=== PATIENT | male | born 1950 | race Hispanic/Latino ===

== ENCOUNTER 2022-11-09 11:52 | Emergency (ER) | payer BC, OTHER ==
--- OUTSIDE RECORDS SUMMARY | 2022-11-09 11:55 | XMS REPORT | Continuity of Care Document ---
:1950 Author Organization [facility] t Address [address] [place] [address] Care Team Providers Name Role Phone Unavailable Unavailable Unavailable Payers Payer Name Policy Type Policy Number Effective Date Expiration Date S ource [employer] [id number] 2020 00:00:00 Problems This patient has no known problems. Allergies, Adverse Reactions, Alerts This patient has no known allergies or adverse reactions. Social History Social Habit Start Date Stop Date Quantity Comments Source Sex Assigned At [address] [facility] Medications This patient has no known medications. Immunizations Ordered Immunization Filled Immunization Date Status Commen ts Source Name Name Covid-19 Vaccine 2020-06-[address] [facility] MRNA (PF) 18yr+ 00:00:00 Medical C enter (Moderna)([id number]) Covid-19 Vaccine 2020-05-[address] [facility] MRNA (PF) 18yr+ 00:00:00 Medical C enter (Moderna)([id number]) Procedures This patient has no known procedures. Plan of Care Planned Activity Planned Date Details Comments Source Future Scheduled 2023-01-[address] [facility] 00:00:00 (Season Ended) [code = Medic al Center Influenza Vaccine (Season Ended)] Future Scheduled 2022-05-[address] [facility] 00:00:00 (12+) [code = Medical Center DEPRESSION SCREENING (12+)] Future Scheduled 2022-05-20 FALLS RISK SCREENING [facility] 00:00:00 [code = FALLS RISK Medical C enter SCREENING] Future Scheduled 2020-08-16 COVID-19 VACCINE (3 - [facility] 00[facility]00 Booster for Moderna [facility] series) [code = COVID-19 VACCINE (3 - Booster for Moderna series)] Future Scheduled 2017-02-02 PNEUMOCOCCAL 65+ YRS ([address] [facility] 00:00:00 - PCV) [code = Medical Cente r PNEUMOCOCCAL 65+ YRS (1 - PCV)] Future Scheduled 2002-02-02 SHINGLES VACCINES ([address] [facility] 00:00:00 2) [code = SHINGLES Medical Center VACCINES (1 of 2)] Future Scheduled 1971-02-02 DTAP/TDAP/TD VACCINES [facility] 00:00:00 (1 - Tdap) [code = Medical C enter DTAP/TDAP/TD VACCINES (1 - Tdap)] Future Scheduled 1970-02-02 HEPATITIS C SCREENING [facility] 00:00:00 [code = HEPATITIS C Medical Center SCREENING] Future Scheduled [address] [facility] 00:00:00 Counseling and Medical Cente r Screening (12+) [code = Tobacco Cessation Counseling and Screening (12+)] Future Scheduled 1952 CT Colonography (combo) [facility] 00:00:00 [code = CT Colonography [facility] (combo)] Future Scheduled 1950 Screening for malignant [facility] 00:00:00 neoplasm of colon Medical Ce nter (procedure) [code = 153144939] Future Scheduled 1950 Screening for malignant [facility] 00:00:00 neoplasm of colon Medical Ce nter (procedure) [code = 450166813] Future Scheduled 1950 Screening for malignant [facility] Test 00:00:00 neoplasm of colon Medical Ce nter (procedure) [code = 712259152] Future Scheduled 1950 Screening for malignant [facility] Test 00:00:00 neoplasm of colon Medical Ce nter (procedure) [code = 863080010] Future Scheduled 1950 Sigmoidoscopy [code = [facility] 00:[facility]:00 Sigmoidoscopy] Medical Cente r Encounters Start End Encounter Admission Attending Care Care Encounter Source Date/Time Date/Time Type Type Clinicians Facility Department ID 2020-06-21 2020-06-21 Outpatient [facility] [id number] [facility] 00:00:00 00:00:00 2020-05-26 2020-05-26 Outpatient [facility] [id number] [facility] 00:00:00 00:00:00 Results This patient has no known results.
--- NOTE | 2022-11-09 12:26 | RAD REPORT ---
EXAM DESCRIPTION: CT - [id number] - 11/09/2022 12:16 pm CLINICAL HISTORY: TRAUMA COMPARISON: No comparisons TECHNIQUE: Axial thin cut noncontrast CT images of the head were obtained. Axial thin cut noncontrast CT images of the cervical spine were obtained. Multiplanar reformatted images were generated and reviewed. All CT scans are performed using dose optimization technique as appropriate and may include automated exposure control or mA/KV adjustment according to patient size. FINDINGS: CT HEAD WITHOUT CONTRAST: No acute hemorrhage, hydrocephalus or extra-axial collection is identified.Focus of near CSF density in the right basal ganglia is nonspecific, but suggestive of a remote small infarct. Other smaller hy poattenuating foci in the right thalamus and posterior limb of right internal capsule are noted, may relate to small infarcts of indeterminate age.No areas of brain edema or midline shift. The paranasal sinuses and mastoids are clear.The calvarium is intact. CT CERVICAL SPINE WITHOUT CONTRAST: No fracture or subluxation.No prevertebral soft tissues swelling is identified. Mild degenerative ch anges of the cervical spine. IMPRESSION: No acute traumatic intracranial or cervical spine findings. Hypoattenuating foci in the right basal ganglia region, some of which may relate to small infarcts of indeterminate age. Please correlate clinically. If there is concern for acute ischemia, additional e valuation by stroke protocol brain MRI may be helpful. Mild cervical spine degenerative changes.
--- NOTE | 2022-11-09 12:38 | RAD REPORT ---
EXAM DESCRIPTION: RAD - Hand Left 3 View - 11/09/2022 12:27 pm CLINICAL HISTORY: PAIN COMPARISON: No comparisons FINDINGS: Significant soft tissue swelling is seen. There is no fracture or aggressive marrow patter n. Fourth finger soft tissue is proximally demonstrates a tiny radiopaque foreign body. Moderate radi ocarpal arthritic changes.
[2022-11-09] MEDS ORDERED: TDAP (DIPHTH,PERTUSS(ACELL),TET VAC) 0.5 ML VIAL IMVAC ONE (12:54)
[2022-11-09] MEDS ORDERED: LIDOCAINE 1% MPF 5 ML VIAL ONE (13:53)
--- NOTE | 2022-11-09 14:50 | EDPHYS ---
Physician Documentation [facility] Name: Bradford Dow Age: 72 yrs Sex: Male : 1950 Arrival Date: 11/09/2022 Time: 11:52 Bed 10 Private MD: ED Physician Tex Krishnan HPI: 11/09 18:52 This 72 yrs old Male presents to ER via Ambulatory with complaints of Fall rt Injury, Head Injury-Adult, Finger Injury. 18:52 Patient presents to the ED with mechanical trip and fall with head injury and injury to rt his left hand. He did sustain a laceration to the left eyebrow and reports that his left index finger is dislocated. Denies other injury or other acute complaints. Symptoms are aching nature, nonradiating, moderate severity, no other aggravating alleviating factors.. Historical: - Allergies: 12:06 No Known Allergies; cm10 - Home Meds: 12:06 None [Active]; cm10 - PMHx: 12:06 None; cm10 - PSHx: 12:06 None; cm10 - Immunization history:: Adult Immunizations unknown, Last tetanus immunization: > 10 years ago. - Social history:: Smoking status: Patient reports the use of cigarette tobacco products, smokes one pack cigarettes per day. - Family history:: not pertinent. ROS: 18:52 Constitutional: Negative for fever, chills, and weight loss, Cardiovascular: Negative rt for chest pain, palpitations, and edema, Respiratory: Negative for shortness of breath, cough, wheezing, and pleuritic chest pain, Abdomen/GI: Negative for abdominal pain, nausea, vomiting, diarrhea, and constipation. 18:52 MS/extremity: Positive for injury or acute deformity, pain. 18:52 Skin: Positive for laceration(s), Negative for abrasions. Exam: 18:52 Constitutional: This is a well developed, well nourished patient who is awake, alert, rt and in no acute distress. Chest/axilla: Normal chest wall appearance and motion. Nontender with no deformity. No lesions are appreciated. Cardiovascular: Regular rate and rhythm with a normal S1 and S2. No gallops, murmurs, or rubs. Normal PMI, no JVD. No pulse deficits. Respiratory: Lungs have equal breath sounds bilaterally, clear to auscultation and percussion. No rales, rhonchi or wheezes noted. No increased work of breathing, no retractions or nasal flaring. Abdomen/GI: Soft, non-tender, with normal bowel sounds. No distension or tympany. No guarding or rebound. No evidence of tenderness throughout. Neuro: Awake and alert, GCS 15, oriented to person, place, time, and situation. Cranial nerves II-XII grossly intact. Motor strength 5/5 in all extremities. Sensory grossly intact. Cerebellar exam normal. Normal gait. Psych: Awake, alert, with orientation to person, place and time. Behavior, mood, and affect are within normal limits. 18:52 Head/face: 2 cm laceration to the left eyebrow, no active bleeding. 18:52 Musculoskeletal/extremity: Dislocated left index finger at the PIP. Vital Signs: 12:03 BP 212 / 121; Pulse 71; Resp 18; Temp 97.3; Pulse Ox 100% on R/A; Weight 65.77 kg; cm10 Height 5 ft. 0 in. ; Pain 4/10; 13:00 BP 225 / 104; ll1 13:48 BP 190 / 96; Pulse 53; ll1 15:00 BP 189 / 95; Pulse 55; Resp 16; Pulse Ox 100% on R/A; Pain 0/10; ll1 12:03 Body Mass Index 27.73 (65.77 kg, 154 cm) cm10 12:03 Pain Scale: Adult cm10 15:00 Pain Scale: Adult ll1 Devon Coma Score: 13:05 Eye Response: spontaneous(4). Motor Response: obeys commands(6). Verbal Response: ll1 oriented(5). Total: 15. Trauma Score (Adult): 13:05 Eye Response: spontaneous(1); Verbal Response: oriented(1); Motor Response: obeys ll1 commands(2); Systolic BP: > 89 mm Hg(4); Respiratory Rate: 10 to 29 per min(4); Hartwick Score: 15; Trauma Score: 12 Procedures: 18:52 Reduction: of the PIP of left index finger, using traction, Patient tolerated well. rt Post reduction film - reveals normal alignment. Joint Treatment: Laceration: 18:52 Wound Repair of 2cm ( 0.8in ) subcutaneous laceration to face. Irregularly shaped.. rt Distal neuro/vascular/tendon intact. Anesthesia: Wound infiltrated with 2 mls of 1% lidocaine. Wound prep: Copious irrigation. Skin closed with 5 5-0 Prolene using interrupted sutures and sterile technique. Dressed with 4x4's. Patient tolerated well. MDM: 12:07 Patient medically screened. rt 18:52 Differential diagnosis: Fracture, intracranial hemorrhage, laceration, dislocated rt finger. Data reviewed: vital signs, nurses notes, radiologic studies. Independent interpretation of the following test(s) in the Emergency Department X-Ray: My interpretation is No fracture seen on interpretation of x-ray images. Test considered but Not performed: EKG: Denies syncopal symptoms, EKG and and labs not indicate. Counseling: I had a detailed discussion with the patient and/or guardian regarding: the historical points, exam findings, and any diagnostic results supporting the discharge/admit diagnosis, radiology results, the need for outpatient follow up. 11/09 12:07 Order name: Hand Left 3 View XRAY; Complete Time: 12:59 rt 11/09 12:07 Order name: CT Head C Spine; Complete Time: 12:59 rt 11/09 12:07 Order name: Wound Care; Complete Time: 12:52 rt 11/09 13:42 Order name: Dressing - Wound; Complete Time: 15:04 rt 11/09 13:42 Order name: Gloves, Sterile; Complete Time: 13:49 rt 11/09 13:42 Order name: Prolene, Sutures; Complete Time: 13:49 rt 11/09 13:42 Order name: Setup Suture Tray; Complete Time: 13:49 rt Administered Medications: 12:51 Drug: Tetanus-Diphtheria Toxoid IM Adult 0.5 ml {Comedian: [employer]. Exp: ll1 10/28/2023. Lot #: [id number]. } Route: IM; Site: right deltoid; 13:36 Follow up: Response: No adverse reaction ll1 14:03 Drug: Lidocaine Infiltration (1 %) 5 ml {Note: by Dr. Krishnan.} Volume: 5 ml; Route: ll1 Infiltration; 15:04 Follow up: Response: No adverse reaction ll1 Disposition Summary: 11/09/22 14:49 Discharge Ordered Location: Home rt Condition: Stable rt Problem: new rt Symptoms: have improved rt Diagnosis - Facial laceration rt - Dislocation to proximal phalanx of left index finger rt Followup: rt - With: Private Physician - When: 7 - 10 days - Reason: Staple/Suture removal Discharge Instructions: - Discharge Summary Sheet rt - Finger or Thumb Dislocation rt - Facial Laceration rt - Sutures, Lapine, or Adhesive Wound Closure rt Forms: - Medication Reconciliation Form rt - Thank You Letter rt - Antibiotic Education rt - Prescription Opioid Use rt Signatures: Dispatcher [employer] Ofelia Biggs RN RN ll1 Tex Krishnan MD MD rt Jolene Carlson RN RN cm10
--- NOTE | 2022-11-09 14:50 | ER ---
Nurse's Notes [facility] Name: Bradford Dow Age: 72 yrs Sex: Male : 1950 Arrival Date: 11/09/2022 Time: 11:52 Bed 10 Private MD: Diagnosis: Facial laceration;Dislocation to proximal phalanx of left index finger Presentation: 11/09 12:03 Chief complaint: Patient states: That he had a mechanical fall. Patient states that he cm10 tripped and fell and hit his head. Patient has laceration to left eyebrow, bleeding controlled. Pt has noted deformity to his 2nd digit on his left hand. Coronavirus screen: Vaccine status: Patient reports receiving the 2nd dose of the covid vaccine. Ebola Screen: Patient denies travel to an Ebola-affected area in the 21 days before illness onset. No symptoms or risks identified at this time. Initial Sepsis Screen: Does the patient meet any 2 criteria? No. Patient's initial sepsis screen is negative. Does the patient have a suspected source of infection? No. Patient's initial sepsis screen is negative. Risk Assessment: Do you want to hurt yourself or someone else? Patient reports no desire to harm self or others. Onset of symptoms was November 09, 2022. 12:03 Method Of Arrival: Ambulatory cm10 12:03 Acuity: MONI 3 cm10 12:56 Care prior to arrival: None. Mechanism of Injury: Fall. Trauma event details: Injury ll1 occurred in the [facility]. Trauma Activation: Not Applicable Physician: ED Physician; Name: ; Notified At: ; Arrived At: Physician: General Surgeon; Name: ; Notified At: ; Arrived At: Physician: Radiology; Name: ; Notified At: ; Arrived At: Physician: Respiratory; Name: ; Notified At: ; Arrived At: Physician: Lab; Name: ; Notified At: ; Arrived At: Historical: - Allergies: 12:06 No Known Allergies; cm10 - Home Meds: 12:06 None [Active]; cm10 - PMHx: 12:06 None; cm10 - PSHx: 12:06 None; cm10 - Immunization history:: Adult Immunizations unknown, Last tetanus immunization: > 10 years ago. - Social history:: Smoking status: Patient reports the use of cigarette tobacco products, smokes one pack cigarettes per day. - Family history:: not pertinent. Screenin:56 [facility] ED Fall Risk Assessment (Adult) History of falling in the last 3 months, ll1 including since admission Yes- single mechanical fall (1 pt) Score/Fall Risk Level 0 - 2 = Low Risk Oriented to surroundings, Maintained a safe environment, Educated pt \T\ family on fall prevention, incl call for assistance when getting out of bed, Hourly rounding (assess needs \T\ fall precautionary measures) done. Abuse screen: Denies threats or abuse. Nutritional screening: No deficits noted. Tuberculosis screening: No symptoms or risk factors identified. Primary Survey: 13:05 NO uncontrolled hemorrhage observed. A: The client is awake and alert. The airway is ll1 patent. Breathing/Chest: Spontaneous respiratory effort, equal unlabored respirations, breath sounds clear bilaterally, regular pattern, symmetrical chest rise and fall. Circulation: No external hemorrhage present. Regular and strong central pulse, skin warm/dry/normal color. Disability Client is alert. Exposure/Environment: There is no evidence of uncontrolled external bleeding. 15:03 Reassessment Breathing: Spontaneous respiratory effort, equal unlabored respirations, ll1 breath sounds clear bilaterally, regular pattern with symmetrical chest rise and fall. Assessment: 12:43 General: Appears uncomfortable, Behavior is calm, cooperative, appropriate for age. ll1 Pain: Complains of pain in face Quality of pain is described as aching. Derm: Reports laceration L eyebrow. Musculoskeletal: Circulation, motion, and sensation intact. Capillary refill < 3 seconds, Reports pain in left hand. 13:00 Reassessment: No changes from previously documented assessment. Patient and/or family ll1 updated on plan of care and expected duration. Pain level reassessed. 13:49 Reassessment: No changes from previously documented assessment. Patient and/or family ll1 updated on plan of care and expected duration. Pain level reassessed. Patient is alert, oriented x 3, equal unlabored respirations, skin warm/dry/pink. 15:02 Reassessment: No changes from previously documented assessment. Patient and/or family ll1 updated on plan of care and expected duration. Pain level reassessed. Dr. Krishnan informed of BP. Still cleared for discharge, follow-up with PCP regarding elevated BP. Vital Signs: 12:03 BP 212 / 121; Pulse 71; Resp 18; Temp 97.3; Pulse Ox 100% on R/A; Weight 65.77 kg; cm10 Height 5 ft. 0 in. ; Pain 4/10; 13:00 BP 225 / 104; ll1 13:48 BP 190 / 96; Pulse 53; ll1 15:00 BP 189 / 95; Pulse 55; Resp 16; Pulse Ox 100% on R/A; Pain 0/10; ll1 12:03 Body Mass Index 27.73 (65.77 kg, 154 cm) cm10 12:03 Pain Scale: Adult cm10 15:00 Pain Scale: Adult ll1 [place] Coma Score: 13:05 Eye Response: spontaneous(4). Motor Response: obeys commands(6). Verbal Response: ll1 oriented(5). Total: 15. Trauma Score (Adult): 13:05 Eye Response: spontaneous(1); Verbal Response: oriented(1); Motor Response: obeys ll1 commands(2); Systolic BP: > 89 mm Hg(4); Respiratory Rate: 10 to 29 per min(4); Devon Score: 15; Trauma Score: 12 ED Course: 11:53 Patient arrived in ED. am2 11:54 Tex Krishnan MD is Attending Physician. rt 12:06 Triage completed. cm10 12:07 Arm band placed on Patient placed. cm10 12:17 CT Head C Spine In Process Unspecified. EDMS 12:28 Hand Left 3 View XRAY In Process Unspecified. EDMS 12:40 Ofelia Ferrell RN is Primary Nurse. ll1 12:41 Patient placed in an exam room, on a stretcher. ll1 13:05 Patient has correct armband on for positive identification. Bed in low position. Call ll1 light in reach. Client placed on continuous cardiac and pulse oximetry monitoring. NIBP monitoring applied. 13:06 Patient maintains SpO2 saturation greater than 95% on room air. ll1 13:06 Thermoregulation: warm blanket given to patient. ll1 15:03 No provider procedures requiring assistance completed. Patient did not have IV access ll1 during this emergency room visit. Administered Medications: 12:51 Drug: Tetanus-Diphtheria Toxoid IM Adult 0.5 ml {Petroleum Production Engineer: [employer]. Exp: ll1 10/28/2023. Lot #: [id number]. } Route: IM; Site: right deltoid; 13:36 Follow up: Response: No adverse reaction ll1 14:03 Drug: Lidocaine Infiltration (1 %) 5 ml {Note: by Dr. Krishnan.} Volume: 5 ml; Route: ll1 Infiltration; 15:04 Follow up: Response: No adverse reaction ll1 Medication: 13:04 Vaccine Information Statement (VIS) provided today. Questions and/or concerns ll1 addressed. VIS edition date: December 23, 2020. Intake: 15:04 PO: 0ml; Total: 0ml. ll1 Output: 15:04 Urine: 0ml; Total: 0ml. ll1 Outcome: 14:49 Discharge ordered by MD. rt 15:03 Discharged to home ambulatory. ll1 15:03 Condition: stable 15:03 Discharge instructions given to patient, family, Instructed on discharge instructions, follow up and referral plans. wound care, Demonstrated understanding of instructions, follow-up care, wound care. 15:04 Patient's length of stay was not longer than 2 hours. ll1 15:04 Patient left the ED. 1 Signatures: Dispatcher [employer] EDAZ Mary Norman Lynsay, RN RN ll1 Tex Krishnan MD MD rt Jolene Carlson RN RN cm10
[2022-11-09 15:10] VITALS: TEMP 97.3; O2SAT 100
[2022-11-09 15:11] VITALS: BP 190/96
== END 2022-11-09 15:04 | disposition home or self-care (01) ==
LOC: ER 11:52
PROC: 0HQ1XZZ Repair Face Skin, External Approach (ICD-10-PCS; principal; 2022-11-09)
PROC: 0RSXXZZ Reposition Left Finger Phalangeal Joint, External Approach (ICD-10-PCS; 2022-11-09)
DX: S01.81XA Laceration without foreign body of other part of head, initial encounter (principal); S63.251A Unspecified dislocation of left index finger, initial encounter; Z23 Encounter for immunization; F17.210 Nicotine dependence, cigarettes, uncomplicated
CPT/HCPCS: 70450; 72125; 73130; 90471; 99284; 12011; 26770; J2001

== ENCOUNTER 2022-11-15 16:08 | Emergency (ER) | payer OTHER ==
--- OUTSIDE RECORDS SUMMARY | 2022-11-15 16:12 | XMS REPORT | Continuity of Care Document ---
:[address] [facility] t Address [address] [place] [address] Care Team Providers Name Role Phone LINDSEY RYDER Attending Clinician Unavailable BEULAH AKBAR Attending Clinician Unavailable Payers Payer Name Policy Type Policy Number Effective Date Expiration Date S chela [employer] MP CVS 9 [id number] 2022 SILVER: O SENIOR SOFTWARE QA ANALYST 87 00:00:00 [employer] [id number] 2020 00:00:00 Problems This patient has no known problems. Allergies, Adverse Reactions, Alerts This patient has no known allergies or adverse reactions. Social History Social Habit Start Date Stop Date Quantity Comments Source Gender identity Rakan perez - External Sexual orientation Rakan Herrera - External History of tobacco Cigarette Smoker Rakan Herrera use - External Cigarettes smoked 2022-11-15 2022-11-15 Rakan Herrera current (pack per 00:00:00 00:00:00 - Exter nal day) - Reported Cigarette 2022-11-15 2022-11-15 Rakan Herrera pack-years 00:00:00 00:00:00 - External Tobacco use and 2022-11-15 2022-11-15 Smokeless tobacco Anup Herrera exposure 00:00:00 00:00:00 non-user - External Alcohol intake 2022-11-15 2022-11-15 Lifetime Rakan abdalla 00:00:00 00:00:00 non-drinker - External (finding) History of Social 2022-11-15 2022-11-15 Rakan Herrera function 00:00:00 00:00:00 - External Sex Ass[birth year] SHE Chauhan kes [facility] Smoking Status Start Date Stop Date Source Smokes tobacco daily 2022-11-15 00:00:00 Rakan Herrera - External Medications This patient has no known medications. Immunizations Ordered Immunization Filled Immunization Date Status Commen ts Source Name Name Covid-19 Vaccine 2020-06-[address] [facility] MRNA (PF) 18yr+ 00:00:00 [facility] enter (Moderna)([id number]) Covid-19 Vaccine 2020-06-[address] [facility] MRNA (PF) 18yr+ 00:00:00 Medical C enter (Moderna)([id number]) Covid-19 Vaccine 2020-05-[address] [facility] MRNA (PF) 18yr+ 00:00:00 Medical C enter (Moderna)([id number]) Covid-19 Vaccine 2020-05-[address] [facility] MRNA (PF) 18yr+ 00:00:00 Medical C enter (Moderna)([id number]) Vital Signs Vital Name Observation Time Observation Value Comments Source Systolic blood 2022-11-15 20:02:00 182 mm[Hg] Rakan Seybold - pressure External Diastolic blood 2022-11-15 20:02:00 100 mm[Hg] Steve szymanski Seybold - pressure External Heart rate 2022-11-15 20:02:00 56 /min Rakan Greg sylvain - External Body temperature 2022-11-15 20:02:00 36.61 Vicenta En[place] ey Seybold - External Respiratory rate 2022-11-15 20:02:00 14 /min [place] ey Seybold - External Body height 2022-11-15 20:02:00 165.1 cm Rakan Greg xiaobomerari - External Body weight 2022-11-15 20:02:00 67.586 kg Rakan Greg xiaobomerari - External BMI 2022-11-15 20:02:00 24.79 kg/m2 Rakan Greg xiaobomerari - External Oxygen saturation in 2022-11-15 20:02:00 99 /min Rakan Herrera - Arterial blood by External Pulse oximetry Procedures This patient has no known procedures. Plan of Care Planned Activity Planned Date Details Comments Source Future Scheduled 2023-01-[address] [facility] 00:00:00 (Season Ended) [code = Medic al Center Influenza Vaccine (Season Ended)] Future Scheduled 2023-01-[address] [facility] 00:00:00 (Season Ended) [code = [facility] al Center Influenza Vaccine (Season Ended)] Future Scheduled 2022-05-[address] [facility] 00:00:00 (12+) [code = Medical Center DEPRESSION SCREENING (12+)] Future Scheduled 2022-05-20 FALLS RISK SCREENING [facility] 00:00:00 [code = FALLS RISK Medical C enter SCREENING] Future Scheduled 2022-05-[address] [...] - Booster for Moderna series)] Future Scheduled 2020-08-16 COVID-19 VACCINE (3 - [facility] Booster for Moderna [facility] series) [code = COVID-19 VACCINE (3 - Booster for Moderna series)] Future Scheduled 2017-02-02 PNEUMOCOCCAL 65+ YRS ([address] [facility] 00:00:00 - PCV) [code = Medical Cente r PNEUMOCOCCAL 65+ YRS (1 - PCV)] Future Scheduled 2017-02-02 PNEUMOCOCCAL 65+ YRS ([address] [facility] 00:00:00 - PCV) [code = Medical Cente r PNEUMOCOCCAL 65+ YRS (1 - PCV)] Future Scheduled 2002-02-02 SHINGLES VACCINES ([address] [facility] 00:00:00 2) [code = SHINGLES [facility] VACCINES (1 of 2)] Future Scheduled 2002-02-02 SHINGLES VACCINES ([address] [facility] 00:00:00 2) [code = SHINGLES [facility] VACCINES (1 of 2)] Future Scheduled 1971-02-02 DTAP/TDAP/TD VACCINES [facility] 00:00:00 (1 - Tdap) [code = Medical C enter DTAP/TDAP/TD VACCINES (1 - Tdap)] Future Scheduled 1971-02-02 DTAP/TDAP/TD VACCINES [facility] 00:00:00 (1 - Tdap) [code = Medical C enter DTAP/TDAP/TD VACCINES (1 - Tdap)] Future Scheduled 1970-02-02 HEPATITIS C SCREENING [facility] 00:00:00 [code = HEPATITIS C Medical Center SCREENING] Future Scheduled 1970-02-02 HEPATITIS C SCREENING [facility] 00:00:00 [code = HEPATITIS C Medical Center SCREENING] Future Scheduled [address] [facility] 00:00:00 Counseling and Medical Cente r Screening (12+) [code = Tobacco Cessation Counseling and Screening (12+)] Future Scheduled [address] [facility] 00:00:00 Counseling and Medical Cente r Screening (12+) [code = Tobacco Cessation Counseling and Screening (12+)] Future Scheduled 1952 CT Colonography (combo) [facility] 00:00:00 [code = CT Colonography [facility] (combo)] Future Scheduled 1952 Screening for malignant [facility] 00:00:00 neoplasm of colon Medical Ce nter (procedure) [code = 189485105] Future Scheduled 1952 Screening for malignant [facility] 00:00:00 neoplasm of colon Medical Ce nter (procedure) [code = 713164762] Future Scheduled 1952 Screening for malignant [facility] 00:00:00 neoplasm of colon Medical Ce nter (procedure) [code = 233717756] Future Scheduled 1952 Screening for malignant [facility] 00:00:00 neoplasm of colon Medical Ce nter (procedure) [code = 752429118] Future Scheduled 1950 Sigmoidoscopy [code = [facility] 00:[facility] Sigmoidoscopy] Medical Cente r Future Scheduled 1952 CT Colonography (combo) [facility] 00:00:00 [code = CT Colonography [facility] (combo)] Future Scheduled 1952 Screening for malignant [facility] 00:00:00 neoplasm of colon Medical Ce nter (procedure) [code = 639839753] Future Scheduled 1952 Screening for malignant [facility] 00:00:00 neoplasm of colon Medical Ce nter (procedure) [code = 788314644] Future Scheduled 1950 Screening for malignant [facility] 00:00:00 neoplasm of colon Medical Ce nter (procedure) [code = 191469819] Future Scheduled 1952 Screening for malignant [facility] 00:00:00 neoplasm of colon Medical Ce nter (procedure) [code = 789525073] Future Scheduled 1950 Sigmoidoscopy [code = [facility] 00:[facility] Sigmoidoscopy] Medical Cente r Encounters Start End Encounter Admission Attending Care Care Encounter Source Date/Time Date/Time Type Type Clinicians Facility Department ID 2022-11-26 2022-11-26 Outpatient RAKAN RYDER [id number] Rakan 11:30:00 11:30:00 LINDSEY stanton 2022-11-15 2022-11-15 Outpatient RAKAN AKBAR [id number] Rakan 14:45:00 14:45:00 BEULAH stanton 2020-06-21 2020-06-21 Outpatient [facility] [id number] [facility] 00:00:00 00:00:00 2020-05-26 2020-05-26 Outpatient [facility] [id number] [facility] 00:00:00 00:00:00 Results This patient has no known results.
[2022-11-15 16:59] LABS: Absolute Lymphocytes (CBC) 2.9 K/uL (0.7-4.9); Hematocrit 50.8 % (39.6-49.0); Lymphocytes % 33.6 % (15.3-44.8); MCV 95.9 fL (80-100); MPV 9.2 fL (7.6-11.3)
[2022-11-15 17:19] LABS: Albumin 4.3 g/dL (3.4-5.0); Bilirubin Direct 0.1 mg/dL (0-0.2); Bilirubin Indirect, Calculated 0.5 mg/dL (0.2-0.8); Bilirubin Total 0.6 mg/dL (0.2-1.0); Protein, Total 8.2 g/dL (6.4-8.2); Troponin High Sensitivity 25.1 pg/mL (<58.9)
[2022-11-15 17:20] LABS: Potassium 4.3 mEq/L (3.5-5.1)
--- NOTE | 2022-11-15 17:29 | ER ---
Nurse's Notes [facility] Name: Bradford Dow Age: 72 yrs Sex: Male : 1950 Arrival Date: 11/15/2022 Time: 16:08 Bed 9 Private MD: Diagnosis: Essential (primary) hypertension Presentation: 11/15 16:25 Chief complaint: Patient states: Went to PCP today for a follow up, blood pressure was nj1 high, PCP needs blood work before being able to prescribe him any medication. Pt has no complaints. Feels fine. Coronavirus screen: Vaccine status: Patient reports receiving the 2nd dose of the covid vaccine. Ebola Screen: Patient denies travel to an Ebola-affected area in the 21 days before illness onset. Initial Sepsis Screen: Does the patient meet any 2 criteria? No. Patient's initial sepsis screen is negative. Does the patient have a suspected source of infection? No. Patient's initial sepsis screen is negative. Risk Assessment: Do you want to hurt yourself or someone else? Patient reports no desire to harm self or others. 16:25 Method Of Arrival: Ambulatory [facility] 16:25 Acuity: MONI 3 nj1 Historical: - Allergies: 16:30 No Known Allergies; nj1 - PSHx: 16:30 Repair of inguinal hernia; nj1 - Immunization history:: Client reports receiving the 2nd dose of the Covid vaccine. - Social history:: Smoking status: Patient reports the use of cigarette tobacco products, smokes one pack cigarettes per day. - Family history:: not pertinent. - Hospitalizations: : No recent hospitalization is reported. Screenin:50 [facility] ED Fall Risk Assessment (Adult) History of falling in the last 3 months, kc6 including since admission No falls in past 3 months (0 pts) Confusion or Disorientation No (0 pts) Intoxicated or Sedated No (0 pts) Impaired Gait No (0 pts) Mobility Assist Device Used No (0 pt) Altered Elimination No (0 pt) Score/Fall Risk Level 0 - 2 = Low Risk Oriented to surroundings, Maintained a safe environment, Educated pt \T\ family on fall prevention, incl call for assistance when getting out of bed, Assessed \T\ reinforced patient's understanding of fall precautions, Hourly rounding (assess needs \T\ fall precautionary measures) done. Abuse screen: Denies threats or abuse. Denies injuries from another. Nutritional screening: No deficits noted. Tuberculosis screening: No symptoms or risk factors identified. Assessment: 16:49 General: Appears in no apparent distress. comfortable, Behavior is calm, cooperative, kc6 appropriate for age. Pain: Denies pain. Neuro: Level of Consciousness is awake, alert, obeys commands, Oriented to person, place, time, situation, Appropriate for age. Cardiovascular: Denies chest pain, Heart tones S1 S2 present Capillary refill < 3 seconds Rhythm is sinus rhythm. Respiratory: Airway is patent Trachea midline Respiratory effort is even, unlabored, Respiratory pattern is regular, symmetrical. GI: No signs and/or symptoms were reported involving the gastrointestinal system. : No signs and/or symptoms were reported regarding the genitourinary system. EENT: No signs and/or symptoms were reported regarding the EENT system. Derm: No signs and/or symptoms reported regarding the dermatologic system. Skin is intact, Skin is pink, warm \T\ dry. Musculoskeletal: No signs and/or symptoms reported regarding the musculoskeletal system. Circulation, motion, and sensation intact. Capillary refill < 3 seconds, Range of motion: intact in all extremities. 17:41 Reassessment: Patient appears in no apparent distress at this time. No changes from kc6 previously documented assessment. Patient and/or family updated on plan of care and expected duration. Pain level reassessed. Patient is alert, oriented x 3, equal unlabored respirations, skin warm/dry/pink. Vital Signs: 16:25 BP 198 / 114; Pulse 70; Resp 18; Temp 98.1(O); Pulse Ox 100% ; Weight 67.59 kg; Height nj1 5 ft. 5 in. ; Pain 0/10; 17:27 BP 173 / 76; rn 16:25 Body Mass Index 24.79 (67.59 kg, 165.1 cm) nj1 16:25 Pain Scale: Adult ky1 ED Course: 16:11 Patient arrived in ED. im 16:12 Ion Burnette MD is Attending Physician. rn 16:30 Triage completed. nj1 16:31 Arm band placed on right wrist. nj1 16:36 Jamilah Chakraborty RN is Primary Nurse. [facility] 16:50 Patient has correct armband on for positive identification. Bed in low position. Call kc6 light in reach. Side rails up X 1. Adult w/ patient. 16:51 Inserted saline lock: 20 gauge in right antecubital area, using aseptic technique. aw1 16:51 Initial lab(s) drawn, by me, sent to lab. aw1 17:41 No provider procedures requiring assistance completed. IV discontinued, intact, kc6 bleeding controlled, No redness/swelling at site. Pressure dressing applied. Administered Medications: 17:41 Drug: Hydrochlorothiazide PO 25 mg Route: PO; kc6 Medication: 17:42 VIS not applicable for this client. kc6 Outcome: 17:29 Discharge ordered by . rn 17:41 Discharged to home ambulatory, with significant other. kc6 17:41 Condition: stable 17:41 Discharge instructions given to patient, Instructed on discharge instructions, follow up and referral plans. medication usage, Demonstrated understanding of instructions, follow-up care, medications, Prescriptions given X 1. 17:42 Patient left the ED. kc6 Signatures: Ion Burnette MD MD rn Campbell, Kaitlyn, RN RN kc6 Gail Velasco RN RN nj1 Hetal De Luna Alyssa aw1
--- NOTE | 2022-11-15 17:29 | EDPHYS ---
Physician Documentation [facility] Name: Bradford Dow Age: 72 yrs Sex: Male : 1950 Arrival Date: 11/15/2022 Time: 16:08 Bed 9 Private MD: ED Physician Ion Burnette HPI: 11/15 16:51 This 72 yrs old Male presents to ER via Ambulatory with complaints of Blood rn work-Dr farris. 16:51 The patient has elevated blood pressure and discovered this at a physician's office. rn Onset: The symptoms/episode began/occurred at an unknown time. Modifying factors:. Associated signs and symptoms: Pertinent negatives: chest pain, headache, nausea, visual changes, vomiting, weakness. Severity of symptoms: At its worst the blood pressure was moderate, in the emergency department the blood pressure is unchanged. The patient has experienced similar episodes in the past. The patient has been recently seen by a physician:. Sent here by Dr. Sierra for HTN and need for bloodwork prior to him starting anti-hypertensives. Pt seen here recently and noted to be hypertensive then as well. Pt not aware of HTN, and denies any symptoms. He states feels fine. No headache/vision changes/chest pain/sob/abd pain/focal neuro complaint. . Historical: - Allergies: 16:30 No Known Allergies; nj1 - PSHx: 16:30 Repair of inguinal hernia; nj1 - Immunization history:: Client reports receiving the 2nd dose of the Covid vaccine. - Social history:: Smoking status: Patient reports the use of cigarette tobacco products, smokes one pack cigarettes per day. - Family history:: not pertinent. - Hospitalizations: : No recent hospitalization is reported. ROS: 16:51 Constitutional: Negative for fever, chills, and weight loss, Eyes: Negative for injury, rn pain, redness, and discharge, Neck: Negative for injury, pain, and swelling, Cardiovascular: Negative for chest pain, palpitations, and edema, Respiratory: Negative for shortness of breath, cough, wheezing, and pleuritic chest pain, Abdomen/GI: Negative for abdominal pain, nausea, vomiting, diarrhea, and constipation, Back: Negative for injury and pain, MS/Extremity: Negative for injury and deformity, Skin: Negative for injury, rash, and discoloration, Neuro: Negative for headache, weakness, numbness, tingling, and seizure. Exam: 16:51 Constitutional: This is a well developed, well nourished patient who is awake, alert, rn and in no acute distress. Head/Face: Normocephalic, atraumatic. Neck: Trachea midline, no masses palpate. Supple, full range of motion without nuchal rigidity, or vertebral point tenderness. No Meningismus. Cardiovascular: Regular rate and rhythm. No pulse deficits. Respiratory: No increased work of breathing, no retractions or nasal flaring. Abdomen/GI: Soft, non-tender Skin: Warm, dry with normal turgor. Normal color with no rashes, no lesions, and no evidence of cellulitis. MS/ Extremity: Pulses equal, no cyanosis. Neurovascular intact. Full, normal range of motion. Equal circumference. Neuro: Awake and alert, GCS 15, oriented to person, place, time, and situation. Cranial nerves II-XII grossly intact. Motor strength 5/5 in all extremities. Sensory grossly intact. Cerebellar exam normal. Normal gait. Vital Signs: 16:25 BP 198 / 114; Pulse 70; Resp 18; Temp 98.1(O); Pulse Ox 100% ; Weight 67.59 kg; Height nj1 5 ft. 5 in. ; Pain 0/10; 17:27 BP 173 / 76; rn 16:25 Body Mass Index 24.79 (67.59 kg, 165.1 cm) nj1 16:25 Pain Scale: Adult nj1 MDM: 16:13 Patient medically screened. rn 17:27 Differential diagnosis: hypertensive crisis, Malignant HTN. Data reviewed: vital signs, rn nurses notes, lab test result(s), EKG, and as a result, I will discharge patient. Counseling: I had a detailed discussion with the patient and/or guardian regarding: the historical points, exam findings, and any diagnostic results supporting the discharge/admit diagnosis, lab results, the need for outpatient follow up, to return to the emergency department if symptoms worsen or persist or if there are any questions or concerns that arise at home. Response to treatment: the patient's symptoms have mildly improved after treatment, and as a result, I will discharge patient. 17:27 ED course: Consulted with Dr. Sierra, labs normal, still asymptomatic, wants patient to rn be sent home with HTCZ 25 mg and f/u. Patient has f/u appt already scheduled. BP has improved here without meds. . 11/15 16:22 Order name: Basic Metabolic Panel; Complete Time: 17:22 rn 11/15 16:22 Order name: CBC with Diff; Complete Time: 17:22 rn 11/15 16:22 Order name: LFT's; Complete Time: 17: rn 11/15 16:22 Order name: NT PRO-BNP; Complete Time: 17: rn 11/15 16:22 Order name: Troponin HS; Complete Time: 17: rn 11/15 16:22 Order name: EKG; Complete Time: 16: rn 11/15 16:22 Order name: Cardiac monitoring; Complete Time: 16:49 rn 11/15 16:22 Order name: EKG - Nurse/Tech; Complete Time: 16:49 rn 11/15 16:22 Order name: IV Saline Lock; Complete Time: 16:49 rn 11/15 16:22 Order name: Labs collected and sent; Complete Time: 16: rn 11/15 16:22 Order name: O2 Per Protocol; Complete Time: 16:49 rn 11/15 16:22 Order name: O2 Sat Monitoring; Complete Time: 16:49 rn Administered Medications: 17:41 Drug: Hydrochlorothiazide PO 25 mg Route: PO; kc6 Disposition Summary: 11/15/22 17:29 Discharge Ordered Location: Home rn Problem: an ongoing problem rn Symptoms: have improved rn Condition: Stable rn Diagnosis - Essential (primary) hypertension rn Followup: rn - With: Private Physician - When: As needed - Reason: Recheck today's complaints, Re-evaluation by your physician Discharge Instructions: - Discharge Summary Sheet rn - Hypertension, Adult rn - How to Take Your Blood Pressure, [id number] rn - Managing Your Hypertension rn Forms: - Medication Reconciliation Form rn - Thank You Letter rn - Antibiotic tele rn - Prescription Opioid Use rn - [email or web address] rn Prescriptions: - Hydrochlorothiazide 25 mg Oral Tablet - take 1 tablet by ORAL route once daily .; 90 tablet; Refills: 0, Product rn Selection Permitted Signatures: Dispatcher [employer] Ion Urena MD MD rn Campbell, Kaitlyn RN RN kc6 Gail Velasco RN RN nj1
[2022-11-15] MEDS ORDERED: hydroCHLOROthiazide 25 MG TAB ONE (17:38)
[2022-11-15 18:22] VITALS: TEMP 98.1; O2SAT 100
[2022-11-15 18:23] VITALS: BP 173/76
--- NOTE | 2022-11-16 08:49 | EKG ---
Test Date: 2022-11-15 Test Time: 16:46:31 [employer] Buyer: ROSIE MEASUREMENT RESULTS: Intervals: Rate: 64 NJ: 160 QRSD: 100 QT: 410 QTc: 422 [place]: P: 56 NJ: 160 QRS: 16 T: 132 INTERPRETIVE STATEMENTS: Normal sinus rhythm with sinus arrhythmia Left ventricular hypertrophy with repolarization abnormality Abnormal ECG Compared to ECG 06/15/2008 07:53:44 Left ventricular hypertrophy now present Early repolarization now present Sinus bradycardia no longer present Electronically Signed On 11-16-22 08:47:40 CDT by Shekhar Grayson
== END 2022-11-15 17:42 | disposition home or self-care (01) ==
LOC: ER 16:08
DX: I10 Essential (primary) hypertension (principal); F17.210 Nicotine dependence, cigarettes, uncomplicated
CPT/HCPCS: 36415; 80048; 80076; 83880; 84484; 85025; 93005; 99284

== ENCOUNTER 2023-04-15 14:43 | Inpatient (IN) | payer OTHER, SELFPAY ==
--- OUTSIDE RECORDS SUMMARY | 2023-04-15 14:47 | XMS REPORT | Continuity of Care Document ---
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 [employer] [id number] 2020 00:00:00 Problems Condition Condition Condition Status Onset Resolution Last Treating Co mments Source Name Details Category Date Date Treatment Clinician Date Seasonal Seasonal Disease Active Kelse y allergic allergic 12-13 Seybol d rhinitis rhinitis 00:00: - due to due to 00 Externa pollen pollen l HTN HTN Disease Active Vesna (hypertens (hypertens 7-10 Se ybold ion) ion) 00:00: - 00 Externa l Incisional Incisional Disease Active K elsey hernia, hernia, 7- Seybold without without 00:00: - obstructio obstructio 00 Ex terna n or n or l gangrene gangrene History of History of Disease Active K elsey hernia hernia 7-10 Seybold surgery surgery 00:00: - 00 Externa l 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 Social History Social Habit Start Date Stop Date Quantity Comments Source Gender identity Vesna Se perez - External History of tobacco Cigarette Smoker Vesna Sharon use - External Sexual orientation [facility] Alcohol intake 2022-12-13 2022-12-13 Ex-drinker Vesna Chencho abdalla 00:00:00 00:00:00 (finding) - External Education 2022-11-26 2022-11-26 17 Vesna Herrera 00:00:00 00:00:00 - External History of Social 2022-11-26 2022-11-26 Vesna Herrera function 00:00:00 00:00:00 - External Cigarettes smoked 2022-11-15 2022-11-15 Vesna Herrera current (pack per 00:00:00 00:00:00 - Exter nal day) - Reported Cigarette 2022-11-15 2022-11-15 Vesna Herrera pack-years 00:00:00 00:00:00 - External Tobacco use and 2022-11-15 2022-11-15 Smokeless tobacco Ke marcin Herrera exposure 00:00:00 00:00:00 non-user - External Sex Assigned At [birth year] [facility] 00:00:00 00:00:00 [facility] Smoking Status Start Date Stop Date Source Smokes tobacco daily 2022-11-15 00:00:00 Vesna Herrera - External Medications Ordered Filled Start Stop Current Ordering Indication Dosage Frequency Signature Comments Components Source Medication Medication Date Date Medication? Clinician (SIG) Name Name Cetirizine Yes [id number] 10mg QD Take 1 K elsey HCl (ZyrTEC 7-27 capsule Seybo ld Allergy) 10 00:00: (10 mg - MG oral 00 total) by Externa Capsule mouth l daily as needed Varenicline Yes [id number] .5mg Take 1 Vesna Tartrate 7-27 tablet Seybold (Chantix) 00:00: (0.5 mg - 0.5 MG oral 00 total) by Ext danielle Tablet mouth 2 l times daily Amlodipine Yes [id number] 10mg Take 1 K elsey Besylate 7-13 tablet (10 Seybo ld (Norvasc) 00:00: mg total) - 10 MG oral 00 by mouth Exter na Tablet daily l Amlodipine 0 Yes [id number] 5mg Take 1 K elsey Besylate 7-10 tablet (5 Seybol d (Norvasc) 5 00:00: mg total) - MG oral 00 by mouth Externa Tablet daily l hydroCHLORO 0 Yes 25mg Take 1 [place] ey thiazide 25 7-02 tablet (25 Se ybold MG oral 00:00: mg total) - Tablet 00 by mouth Externa daily l hydroCHLORO 0 Yes 25mg Take 1 [place] ey thiazide 25 7-02 tablet (25 Se ybold MG oral 00:00: mg total) - Tablet 00 by mouth Externa daily l Immunizations Ordered Filled Immunization Date Status Comments [facility] Immunization Name Name Covid-19 Vaccine 2020-06-[address] [facility] MRNA (PF) 18yr+ 00:00:00 Medical C enter (Moderna)([id number]) Covid-19 Vaccine 2020-06-[address] [facility] MRNA (PF) 18yr+ 00:00:00 Medical C enter (Moderna)([id number]) Covid-19 Vaccine 2020-05-[address] [facility] MRNA (PF) 18yr+ 00:00:00 Medical C enter (Moderna)([id number]) Covid-19 Vaccine 2020-05-[address] [facility] MRNA (PF) 18yr+ 00:00:00 Medical C enter (Moderna)([id number]) Covid-19 Vaccine Unknown Completed [facility] MRNA (PF) 18yr+ Medical C enter (Moderna)([id number]) Covid-19 Vaccine Unknown Completed [facility] MRNA (PF) 18yr+ Medical C enter (Moderna)([id number]) Vital Signs Vital Name Observation Time Observation Value Comments Source Systolic blood 2022-12-13 14:14:00 120 mm[Hg] Vesna Seybold - pressure External Diastolic blood 2022-12-13 14:14:00 70 mm[Hg] Steve szymanski Seybold - pressure External Heart rate 2022-12-13 14:07:00 59 /min Vesna S eybold - External Body temperature 2022-12-13 14:07:00 36.61 Vicenta [place] ey Seybold - External Respiratory rate 2022-12-13 14:07:00 14 /min [place] ey Seybold - External Body height 2022-12-13 14:07:00 165.1 cm Vesna S eybold - External Body weight 2022-12-13 14:07:00 68.04 kg Vesna S eybold - External BMI 2022-12-13 14:07:00 24.96 kg/m2 Vesna S eybold - External Oxygen saturation in 2022-12-13 14:07:00 99 /min Vesna Seybold - Arterial blood by External Pulse oximetry Systolic blood 2022-11-26 16:16:00 153 mm[Hg] Vesna Seybold - pressure External Diastolic blood 2022-11-26 16:16:00 87 mm[Hg] Brodyse y Seybold - pressure External Heart rate 2022-11-26 16:16:00 89 /min Vesna S eybold - External Body temperature 2022-11-26 16:16:00 36.44 Vicenta [place] ey Seybold - External Respiratory rate 2022-11-26 16:16:00 14 /min [place] ey Seybold - External Body height 2022-11-26 16:16:00 165.1 cm Vesna S eybold - External Body weight 2022-11-26 16:16:00 68.04 kg Vesna S eybold - External BMI 2022-11-26 16:16:00 24.96 kg/m2 Vesna S eybold - External Oxygen saturation in 2022-11-26 16:16:00 99 /min Vesna Seybold - Arterial blood by External Pulse oximetry Diastolic blood 2022-11-15 20:02:00 100 mm[Hg] Brodyse y Seybold - pressure External Heart rate 2022-11-15 20:02:00 56 /min Vesna S eybold - External Body temperature 2022-11-15 20:02:00 36.61 Vicenta [place] ey Seybold - External Respiratory rate 2022-11-15 20:02:00 14 /min [place] ey Seybold - External Body height 2022-11-15 20:02:00 165.1 cm Vesna S eybold - External Body weight 2022-11-15 20:02:00 67.586 kg Vesna hagenrm - External BMI 2022-11-15 20:02:00 24.79 kg/m2 Vesna narayan - External Oxygen saturation in 2022-11-15 20:02:00 99 /min Vesna Minayatamrazeus - Arterial blood by External Pulse oximetry Systolic blood 2022-11-15 20:02:00 182 mm[Hg] Vesna Herrera - pressure External Procedures This patient has no known procedures. Plan of Care Planned Activity Planned Date Details Comments Source Future Scheduled 2023-01-18 Influenza Vaccine (#1) [facility] 00:00:00 [code = Influenza Medical Ce nter Vaccine (#1)] Future Scheduled 2023-01-[address] [facility] 00:00:00 (Season Ended) [code = Medic al Center Influenza Vaccine (Season Ended)] Future Scheduled 2023-01-[address] [facility] 00:00:00 (Season Ended) [code = [facility] al Center Influenza Vaccine (Season Ended)] Future [...] - [facility] 00:[facility]00 Moderna series) [code = [facility] COVID-19 VACCINE (3 - Moderna series)] Future Scheduled 2020-08-16 COVID-19 VACCINE [...] [facility] 00:00:00 2) [code = [facility] Center VACCINES (1 of 2)] Future Scheduled 2002-02-02 SHINGLES VACCINES ([address] [facility] 00:00:00 2) [code = SHINGLES [facility] Center VACCINES (1 of 2)] Future Scheduled 2002-02-02 SHINGLES VACCINES ([address] [facility] 00:00:00 2) [code = SHINGLES [facility] Center VACCINES (1 of 2)] Future Scheduled [...] [facility] 00[facility] [code = CT Colonography [facility] (combo)] Future Scheduled 1950 Screening for malignant [facility] 00:00:00 neoplasm of colon Medical Ce nter (procedure) [code = 734368907] Future Scheduled 1952 Screening for malignant [facility] 00:00:00 neoplasm of colon Medical Ce nter (procedure) [code = 687843336] Future Scheduled 1952 Screening for malignant [facility] 00:00:00 neoplasm of colon Medical Ce nter (procedure) [code = 905397623] Future Scheduled 1952 Screening for malignant [facility] 00:00:00 neoplasm of colon Medical Ce nter (procedure) [code = 799935866] Future Scheduled 1950 Sigmoidoscopy [code = [facility]] Medical Cent[facility] r Future Scheduled 1952 CT Colonography (combo) [facility] 00:00:00 [code = CT Colonography [facility] (combo)] Future Scheduled 1952 CT Colonography (combo) [facility] 00:00:00 [code = CT Colonography [facility] (combo)] Future Scheduled 1952 Screening for malignant [facility] 00:00:00 neoplasm of colon Medical Ce nter (procedure) [code = 124020369] Future Scheduled 1952 Screening for malignant [facility] 00:00:00 neoplasm of colon Medical Ce nter (procedure) [code = 815313719] Future Scheduled 1952 Screening for malignant [facility] 00:00:00 neoplasm of colon Medical Ce nter (procedure) [code = 909262537] Future Scheduled 1952 Screening for malignant [facility] 00:00:00 neoplasm of colon Medical Ce nter (procedure) [code = 393162783] Future Scheduled 1950 Sigmoidoscopy [code = [facility] 00[facility] S[facility]oidoscopy] Medical Cente r Future Scheduled 1952 Screening for malignant [facility] 00:00:00 neoplasm of colon Medical Ce nter (procedure) [code = 307583691] Future Scheduled 1952 Screening for malignant [facility] 00:00:00 neoplasm of colon Medical Ce nter (procedure) [code = 872017970] Future Scheduled 1952 Screening for malignant [facility] 00:00:00 neoplasm of colon Medical Ce nter (procedure) [code = 968242630] Future Scheduled 1952 Screening for malignant [facility] 00:00:00 neoplasm of colon Medical Ce nter (procedure) [code = 266744016] Future Scheduled 1950 Sigmoidoscopy [code [facility] 00:[facility] S[facility]oscopy] Medical Cente r Encounters Start End Encounter Admission Attending Care Care Encounter Source Date/Time Date/Time Type Type Clinicians Facility Department ID 2023-04-03 2023-04-03 Outpatient VESNA RYDER [id number] Vesna 00:00:00 00:00:00 LINDSEY stanton 2023-03-15 2023-03-15 Outpatient VESNA RYDER [id number] Vesna 08:00:00 08:00:00 LINDSEY stanton 2023-01-16 2023-01-16 Outpatient PREZAS, VESNA BLEDSOE [id number] Vesna 00:00:00 00:00:00 LINDSEY Seybol d 2022-12-27 2022-12-27 Outpatient PREZAS, VESNA BLEDSOE [id number] Vesna 00:00:00 00:00:00 LINDSEY Seybol d 2022-12-14 2022-12-14 Outpatient OLIVEIRA, VESNA BLEDSOE [id number] Vesna 10:30:00 10:30:00 MAURITIAN Seybol d 2022-12-13 2022-12-13 Outpatient PREZAS, VESNA BLEDSOE [id number] Vesna 09:00:00 09:00:00 LINDSEY Seybol d 2022-12-07 2022-12-07 Outpatient PREZAS, VESNA BLEDSOE [id number] Vesna 00:00:00 00:00:00 LINDSEY Seybol d 2022-11-29 2022-11-29 Outpatient PREZAS, VESNA BLEDSOE [id number] Vesna 10:30:00 10:30:00 LINDSEY Seybol d 2022-11-29 2022-11-29 Outpatient MAHONEY, VESNA BLEDSOE [id number] Vesna 00:00:00 00:00:00 TRENETH Seybol d 2022-11-29 2022-11-29 Outpatient PREZAS, VESNA BLEDSOE [id number] Vesna 00:00:00 00:00:00 LINDSEY Seybol d 2022-11-28 2022-11-28 Outpatient OLIVEIRA, VESNA BLEDSOE [id number] Vesna 00:00:00 00:00:00 MAURITIAN Seybol d 2022-11-28 2022-11-28 Outpatient PREZAS, VESNA BLEDSOE [id number] Vesna 00:00:00 00:00:00 LINDSEY Seybol d 2022-11-27 2022-11-27 Outpatient PREZAS, VESNA BLEDSOE [id number] Vesna 00:00:00 00:00:00 LINDSEY Seybol d 2022-11-26 2022-11-26 Outpatient LAB90 VESNA BLEDSOE [id number] Vesna 12:00:00 12:00:00 Seybol maximino 2022-11-26 2022-11-26 Outpatient VESNA RYDER [id number] Vesna 11:30:00 11:30:00 LINDSEY stanton 2022-11-15 2022-11-15 Outpatient VESNA AKBAR [id number] Vesna 14:45:00 14:45:00 BEULAH stanton 2020-06-21 2020-06-21 Outpatient [facility] [id number] [facility] 00:00:00 00:00:00 2020-05-26 2020-05-26 Outpatient [facility] [id number] [facility] 00:00:00 00:00:00 Results This patient has no known results.
--- NOTE | 2023-04-15 15:24 | RAD REPORT ---
EXAM DESCRIPTION: CT - Ct Stroke Brain Wo Cont - 04/15/2023 3:06 pm CLINICAL HISTORY: STROKE ALERT COMPARISON: No comparisons TECHNIQUE: Noncontrast head CT images were obtained without IV contrast. Multiplanar reformats were generated and reviewed. All CT scans are performed using dose optimization technique as appropriate and may include automated exposure control or mA/KV adjustment according to patient size. FINDINGS: No intracranial hemorrhage, mass, or edema. Midline structures are unremarkable. Right basal ganglia focus of near CSF density, may represent a small remote infarct or prominent cornelio vascular space. Normal ventricular caliber for age. Kaur-white matter differentiation is preserved, without evidence of acute infarct. No abnormal extra- axial fluid collections. Mastoid air cells and visualized portions of the paranasal sinuses are clear. No acute bony findings. IMPRESSION: No evidence of an acute intracranial process. Right basal ganglia focus of near CSF density, may represent a small remote infarct or prominent cornelio vascular space. The findings were communicated to Hung Hernández on 04/15/2023 at 15:18 hours.
[2023-04-15 15:33] LABS: Absolute Lymphocytes (CBC) 1.2 K/uL (0.7-4.9); Lymphocytes % 6.9 % (15.3-44.8); MCV 97.5 fL (80-100); MPV 8.1 fL (7.6-11.3); Platelets 256 thou/uL (152-406); RBC Red Blood Cell Count 5.02 M/uL (4.33-5.43)
[2023-04-15 15:57] LABS: Albumin 4.5 g/dL (3.4-5.0); Bilirubin Direct 0.2 mg/dL (0-0.2); Bilirubin Indirect, Calculated 0.5 mg/dL (0.2-0.8); Bilirubin Total 0.7 mg/dL (0.2-1.0); Magnesium 2.5 mg/dL (1.6-2.4); Potassium 3.8 mEq/L (3.5-5.1); Protein, Total 8.5 g/dL (6.4-8.2)
[2023-04-15 16:01] LABS: Troponin High Sensitivity 120.8 pg/mL (<58.9)
--- NOTE | 2023-04-15 16:01 | RAD REPORT ---
EXAM DESCRIPTION: CT - Head angio - 04/15/2023 3:18 pm CLINICAL HISTORY: STROKE ALERT COMPARISON: Ct Stroke Brain Wo Cont dated 04/15/2023; Neck Angio dated 04/15/2023 TECHNIQUE: Axial CT angiography images of the head was performed with multiplanar and maximum intens ity projection reconstructions. Images performed following intravenous administration of 100mL Isovue 370. All CT scans are performed using dose optimization technique as appropriate and may include automated exposure control or mA/KV adjustment according to patient size. FINDINGS: No evidence of large vessel occlusion. Multifocal moderate to severe narrowing of the left ROBERTO CARLOS starting at its P2 segment. multifocal up to moderate short segment narrowing at the origins of the left MCA superior and inferior divisions. More distal visualized vessels reconstitute normally. No other flow-limiting stenosis or vascular malform ation identified. Developmentally diminutive appearance of the distal basilar artery would patent betsy ateral posterior communicating arteries.. Paired appearance of the right superior cerebellar artery. No evidence of aneurysm or dissection flap is detected. Antegrade flow is seen in the vertebral arteries. The vertebral arteries are codominant. The visualized dural venous sinuses are grossly patent. IMPRESSION: No evidence of large vessel occlusion. Multifocal left ROBERTO CARLOS moderate to severe narrowing along the A2 segment. multifocal up to moderate shor t segment narrowing at the origin of the left MCA superior and inferior divisions. Findings are likel y related to intracranial atherosclerotic changes.
--- NOTE | 2023-04-15 16:06 | RAD REPORT ---
EXAM DESCRIPTION: CT - Neck Angio - 04/15/2023 3:18 pm CLINICAL HISTORY: stroke COMPARISON: Head C Spine Mpr Wo Con dated 11/09/2022 TECHNIQUE: Axial CT angiography images of the head was performed with multiplanar and maximum intens ity projection reconstructions. Images performed following intravenous administration of 100mL Isovue 370. All CT scans are performed using dose optimization technique as appropriate and may include automated exposure control or mA/KV adjustment according to patient size. Quantification of carotid stenosis, if any, is performed according to NASCET criteria. FINDINGS: A left aortic arch is identified with normal three vessel configuration of the great vesse ls. No significant flow abnormality is seen of the common carotid bilaterally. Up to moderate atheroscler otic plaque burden at the carotid bulbs, more so on the left. No significant stenosis is identified involving the cervical segments of both internal carotid arteri es. Proximal tortuosity bilaterally more pronounced on the right. Normal flow is seen within both vertebral arteries. IMPRESSION: No significant flow abnormality of the neck vessels is identified. CAROTID STENOSIS REFERENCE USING NASCET CRITERIA: % ICA stenosis = (1 - narrowest ICA diameter/diameter of distal cervical ICA) x 100. Mild - <50% stenosis. Moderate - 50-69% stenosis. Severe - 70-94% stenosis. Near occlusion - 95-99% stenosis. Occluded - 100% stenosis.
--- NOTE | 2023-04-15 16:42 | RAD REPORT ---
EXAM DESCRIPTION: RADChest Single View04/15/2023 4:22 pm CLINICAL HISTORY: stroke COMPARISON: CHEST PA AND LAT 2 VIEW dated 05/11/2008; Neck Angio dated 04/15/2023 TECHNIQUE: Portable AP view of the chest. FINDINGS: Right upper lobe rounded calcified nodule, suggesting a granuloma, most significantly gambino ged. The lungs are otherwise clear. No pneumothorax or effusion. The cardiomediastinal contours are unremarkable. IMPRESSION: No acute cardiopulmonary process.
--- NOTE | 2023-04-15 16:54 | EDPHYS ---
Physician Documentation [facility] Name: Bradford Dow Age: 73 yrs Sex: Male : 1950 Arrival Date: 04/15/2023 Time: 14:43 Bed 8 Private MD: ED Physician Hung Hernández HPI: 04/15 15:31 This 73 yrs old Male presents to ER via Wheelchair with complaints of Slurred ms3 Speech, Trouble Walking. 15:31 73-year-old male with past medical history of hypertension presents to the emergency ms3 department for bilateral lower extremity weakness that began at 7 AM. Patient states while walking outside he fell and has had lower extremity weakness and slurred speech since that time. Patient's son notes he called his son 2 hours prior to arrival for help. Patient's son notes patient to have slurred speech. Patient denies nausea, vomiting, pain. Historical: - Allergies: 14:54 No Known Allergies; mb9 - Home Meds: 14:54 amlodipine 10 mg tablet [Active]; mb9 - PMHx: 14:54 Hypertensive disorder; mb9 - PSHx: 14:54 Repair of inguinal hernia; mb9 - Immunization history:: Adult Immunizations up to date. - Social history:: Smoking status: Patient reports the use of cigarette tobacco products, smokes one pack cigarettes per day. ROS: 15:31 Constitutional: Negative for fever, and chills. Neck: Negative for injury, pain, and ms3 swelling, Cardiovascular: Negative for chest pain, and palpitations. Respiratory: Negative for shortness of breath, cough, wheezing, and pleuritic chest pain, Abdomen/GI: Negative for abdominal pain, nausea, vomiting, diarrhea, and constipation, 15:31 MS/extremity: Positive for Lower extremity weakness, 15:31 Neuro: Positive for weakness, 15:31 All other systems are negative, Exam: 15:31 Constitutional: This is a well developed, well nourished patient who is awake, alert, ms3 and in no acute distress. 15:31 Neck: Trachea midline, no cervical lymphadenopathy. Supple, full range of motion without nuchal rigidity, or vertebral point tenderness. No Meningismus. Chest/axilla: Normal chest wall appearance and motion. Nontender with no deformity. Cardiovascular: Regular rate and rhythm with a normal S1 and S2. No gallops, murmurs, or rubs. Normal PMI, no JVD. No pulse deficits. Respiratory: Lungs have equal breath sounds bilaterally, clear to auscultation and percussion. No rales, rhonchi or wheezes noted. No increased work of breathing, no retractions or nasal flaring. Abdomen/GI: Soft, non-tender, with normal bowel sounds. No distension or tympany. No guarding or rebound. No evidence of tenderness throughout. Skin: Warm, dry with normal turgor. Normal color with no rashes, no lesions, and no evidence of cellulitis. 15:31 Head/face: Noted is Left facial droop. 15:31 Neuro: Orientation: is normal, to person, place, time \T\ situation. Mentation: is normal, Memory: is normal, Cerebellar function: normal finger to nose testing, Motor: Left lower extremity with drift, Sensation: is normal, Gait: not tested. 15:47 ECG was reviewed by the Attending Physician. ms3 Vital Signs: 14:55 BP 155 / 92; Pulse 88; Resp 18; Temp 97.4; Pulse Ox 97% ; Weight 79.38 kg; Height 5 ft. mb9 7 in. ; 16:15 BP 137 / 86; Pulse 85; Resp 15; Pulse Ox 98% ; jl7 14:55 Body Mass Index 27.41 (79.38 kg, 170.18 cm) mb9 NIH Stroke Scale Scores: 15:00 NIHSS Score: 4 ms3 15:28 NIHSS Score: 4 iw MDM: 14:59 Patient medically screened. ms3 16:50 Data reviewed: vital signs, nurses notes, and as a result, I will admit patient. ms3 Consideration of Admission/Observation Patient was admitted/placed on observation. Management of patient was discussed with the following: Hospitalist: Dr Calero. Manager Credit Collections: Dr Helm. I considered the following discharge prescriptions or medication management in the emergency department Medications were administered in the Emergency Department. See MAR. Independent interpretation of the following test(s) in the Emergency Department CT Scan: My interpretation is CT Head without contrast reviewed by me does not reveal ICH. Historians other than the Patient: Daughter/Son: Son. Care significantly affected by the following chronic conditions: Hypertension. Care significantly affected by the following Social Determinants of Health: Poor access to healthcare and/or lack of insurance. Counseling: I had a detailed discussion with the patient and/or guardian regarding the historical points, exam findings, and any diagnostic results supporting the discharge/admit diagnosis, lab results, radiology results, the need for further work-up and treatment in the hospital, smoking cessation. ED course: Discussed case with Dr. Helm and he recommends aspirin, Plavix, fluids, statins. Case discussed with Dr. Coello and he accepts patient. Discussed necessity for admission with patient and his son and they understand and agree with plan.. 04/15 15:00 Order name: Basic Metabolic Panel; Complete Time: 16:30 ms3 04/15 15:00 Order name: CBC with Diff; Complete Time: 16:01 ms3 04/15 15:00 Order name: Hepatic Function; Complete Time: 16:30 ms3 04/15 15:00 Order name: High Sensitivity Troponin; Complete Time: 16:30 ms3 04/15 15:00 Order name: Magnesium; Complete Time: 16:30 ms3 04/15 15:00 Order name: Protime (+inr); Complete Time: 16:01 ms3 04/15 15:00 Order name: Ptt, Activated; Complete Time: 16:01 ms3 04/15 15:03 Order name: Glucose, Ancillary Testing; Complete Time: 16:01 EDMS 04/15 15:29 Order name: CREATININE WHOLE BLOOD; Complete Time: 16:01 EDMS 04/15 15:00 Order name: CT Head Angio; Complete Time: 16:30 ms3 04/15 15:00 Order name: CT Neck Angio; Complete Time: 16:30 ms3 04/15 15:00 Order name: CT Stroke Brain w/o Contrast; Complete Time: 16:01 ms3 04/15 16:21 Order name: Chest Single View; Complete Time: 16:46 EDMS 04/15 15:00 Order name: EKG; Complete Time: 15:01 ms3 04/15 17:13 Order name: CONS Physician Consult EDCT 04/15 15:00 Order name: Accucheck; Complete Time: 15:23 ms3 04/15 15:00 Order name: Cardiac monitoring; Complete Time: 16:06 ms3 04/15 15:00 Order name: EKG - Nurse/Tech; Complete Time: 15:44 ms3 04/15 15:00 Order name: IV Saline Lock; Complete Time: 15:34 ms3 04/15 15:00 Order name: Labs collected and sent; Complete Time: 15:34 ms3 04/15 15:00 Order name: NPO; Complete Time: 15:44 ms3 04/15 15:00 Order name: O2 Per Protocol; Complete Time: 15:34 ms3 04/15 15:00 Order name: O2 Sat Monitoring; Complete Time: 15:34 ms3 04/15 15:00 Order name: Stroke Swallow Screen; Complete Time: 15:44 ms3 EC:47 Rate is 82 beats/min. Rhythm is regular. Left axis deviation noted. OR interval is ms3 normal. QRS interval is normal. Clinical impression: NSR w/ Non-specific ST/T Changes. Interpreted by me. Reviewed by me. Administered Medications: 17:24 Drug: Aspirin PO Chewable Tablet 162 mg PO once Route: PO; iw 17:24 Drug: Clopidogrel PO 75 mg PO once Route: PO; iw 17:24 Drug: foLIC Acid PO 1 mg PO once Route: PO; iw Point of Care Testing: Blood Glucose: 15:00 Blood Glucose: 109 mg/dL; jl7 Ranges: Critical Glucose Levels:Adult <50 mg/dl or >400 mg/dl <40 mg/dl or >180 mg/dl Disposition Summary: 04/15/23 16:53 Hospitalization Ordered Notes: Hospitalization Status: Inpatient Admission ms3 Provider: Madie Calero ms3 Location: Telemetry/MedSurg (Inpatient) ms3 Condition: Stable ms3 Problem: new ms3 Symptoms: are unchanged ms3 Bed/Room Type: Standard ms3 Room Assignment: 220(04/15/23 17:26) bd Diagnosis - ischemic cerebrovascular accident ms3 - Dysarthria following unspecified cerebrovascular disease ms3 - Essential (primary) hypertension ms3 - Elevated Troponin ms3 Forms: - Medication Reconciliation Form ms3 - SBAR form ms3 - Leadership Thank You Letter ms3 Critical care time excluding procedures: 16:53 Critical care time: Bedside Care: 30 minutes, Consultation: 10 minutes, Family ms3 Intervention: 10 minutes. Total time: 50 minutes NIH Stroke Scale - NIH Stroke Score Date: 04/15/2023 Time: 15:00 Total Score = 4 10. Dysarthria (speech clarity - read or repeat words) - 1(Mild to Moderate) 11. Extinction and Inattention (visual/tactile/auditory/spatial/personal) - 0(No abnormality) 1a. Level of Consciousness (LOC) - 0(Alert) 1b. Level of Consciousness (LOC) (Month \T\ Age) - 0(Both) 1c. LOC Commands (Open \T\ Closes Eyes/Restrictive Preparation Operator) - 0(Both) 2. Best Gaze (Lateral Gaze Paresis) - 0(Normal) 3. Visual Field Loss - 0(No visual loss) 4. Facial Palsy - 2(Partial paralysis) 5a. Left Arm: Motor (10-second hold) - 0(No drift) 5b. Right Arm: Motor (10-second hold) - 0(No drift) 6a. Left Leg: Motor (5-second hold - always test supine) - 1(Drift) 6b. Right Leg: Motor (5-second hold - always test supine) - 0(No drift) 7. Limb Ataxia (finger/nose \T\ heel/herrera - test with eyes open) - 0(Absent) 8. Sensory Loss (pinprick arms/legs/face) - 0(Normal) 9. Best Language: Aphasia (description/naming/reading) - 0(No aphasia) Initials: ms3 NIH Stroke Scale - NIH Stroke Score Date: 04/15/2023 Time: 15:28 Total Score = 4 10. Dysarthria (speech clarity - read or repeat words) - 1(Mild to Moderate) 11. Extinction and Inattention (visual/tactile/auditory/spatial/personal) - 0(No abnormality) 1a. Level of Consciousness (LOC) - 0(Alert) 1b. Level of Consciousness (LOC) (Month \T\ Age) - 0(Both) 1c. LOC Commands (Open \T\ Closes Eyes/Restrictive Preparation Operator) - 0(Both) 2. Best Gaze (Lateral Gaze Paresis) - 0(Normal) 3. Visual Field Loss - 0(No visual loss) 4. Facial Palsy - 1(Minor Paralysis) 5a. Left Arm: Motor (10-second hold) - 1(Drift) 5b. Right Arm: Motor (10-second hold) - 0(No drift) 6a. Left Leg: Motor (5-second hold - always test supine) - 1(Drift) 6b. Right Leg: Motor (5-second hold - always test supine) - 0(No drift) 7. Limb Ataxia (finger/nose \T\ heel/herrera - test with eyes open) - 0(Absent) 8. Sensory Loss (pinprick arms/legs/face) - 0(Normal) 9. Best Language: Aphasia (description/naming/reading) - 0(No aphasia) Initials: iw Signatures: Dispatcher [employer] EDMS Opal Mazariegos Shelly, SALES PRODUCER-C SALES PRODUCER-Csnw Kimmy Brown, RN RN iw Hung Hernández DO DO ms3 Mic, Mili Portillo RN RN mb9 Corrections: (The following items were deleted from the chart) 14:55 14:54 Social history: Smoking status: Patient denies any tobacco usage or mb9 history of. mb9 16:25 15:01 Chest Single View+RAD.RAD.BRZ ordered. EDMS EDMS 17:26 16:53 ms3 bd
--- NOTE | 2023-04-15 16:54 | ER ---
Nurse's Notes [facility] Name: Bradford Dow Age: 73 yrs Sex: Male : 1950 Arrival Date: 04/15/2023 Time: 14:43 Bed 8 Private MD: Diagnosis: ischemic cerebrovascular accident;Dysarthria following unspecified cerebrovascular disease;Essential (primary) hypertension;Elevated Troponin Presentation: 04/15 14:50 Chief complaint: Patient's son or daughter states: "At 7am, he called me saying he was mb9 weak, had slurred speech, and numbness in his right leg. He was walking to the house, fell, and had lower leg weakness. He is not acting like himself." Pt has left facial droop in triage RM. Coronavirus screen: At this time, the client does not indicate any symptoms associated with coronavirus-19. Ebola Screen: No symptoms or risks identified at this time. Initial Sepsis Screen: Does the patient meet any 2 criteria? No. Patient's initial sepsis screen is negative. Does the patient have a suspected source of infection? No. Patient's initial sepsis screen is negative. Risk Assessment: Do you want to hurt yourself or someone else? Patient reports no desire to harm self or others. 14:50 Method Of Arrival: Wheelchair mb9 14:50 Acuity: MONI 2 mb9 14:55 Onset of symptoms was April 15, 2023. mb9 15:00 An acute neurological deficit is present. Pre-hospital glucose is not applicable to iw this patient. Triage Assessment: 14:53 The onset of the patients symptoms was more than six hours ago. General: Appears in no mb9 apparent distress. Behavior is calm, appropriate for age. Pain: Denies pain. Neuro: Isbell Agitation-Sedation Scale (RASS): 0 - Alert and Calm Level of Consciousness is awake, alert, obeys commands, Oriented to person, place, time, situation, Appropriate for age Coal Screener are weak bilaterally Weakness in left in right in bilateral Gait is unsteady, Speech is slurred, Facial droop on left, Pupils are PERRLA, Numbness in right leg Leg drift in left leg. Cardiovascular: Patient's skin is warm and dry. Respiratory: Airway is patent Respiratory effort is even, unlabored, Respiratory pattern is regular, symmetrical. GI: Patient currently denies nausea, vomiting. : No signs and/or symptoms were reported regarding the genitourinary system. Derm: Skin is pink, warm \\T\\ dry. Musculoskeletal: Range of motion: intact in all extremities. 15:00 The onset of the patients symptoms was April 15, 2023 at 07:00. iw 18:12 Neuro: Reports. iw Stroke Activation: Symptom onset > 6 hours Physician: Stroke Attending; Name: ; Notified At: ; Arrived At: Physician: Chief Stroke Resident; Name: ; Notified At: ; Arrived At: Physician: Stroke Resident; Name: ; Notified At: ; Arrived At: Physician: ED Attending; Name: Hernández; Notified At: 14:50; Arrived At: 14:50 Physician: ED Resident; Name: ; Notified At: ; Arrived At: Historical: - Allergies: 14:54 No Known Allergies; mb9 - Home Meds: 14:54 amlodipine 10 mg tablet [Active]; mb9 - PMHx: 14:54 Hypertensive disorder; mb9 - PSHx: 14:54 Repair of inguinal hernia; mb9 - Immunization history:: Adult Immunizations up to date. - Social history:: Smoking status: Patient reports the use of cigarette tobacco products, smokes one pack cigarettes per day. Screenin:10 [facility] ED Fall Risk Assessment (Adult) Confusion or Disorientation No (0 pts) iw Impaired Gait Yes (1 pt) Altered Elimination Score/Fall Risk Level 3 or more points = High Risk. [facility] ED Fall Risk Assessment (Adult) History of falling in the last 3 months, including since admission Yes- single mechanical fall (1 pt). Abuse screen: Denies threats or abuse. Denies injuries from another. Nutritional screening: No deficits noted. Tuberculosis screening: No symptoms or risk factors identified. Assessment: 15:28 VAN Scoring: Arm Drift: Minor drift Visual Disturbance: No visual disturbance noted. iw Aphasia: No aphasia noted. Neglect: No neglect noted. 15:30 [place] Swallow Protocol Exclusion Criteria: Brief Cognitive Screen What is your name? iw Normal, Where are you right now? Normal, What year is it? Normal. Oral Mechanism Examination Facial Symmetry: Normal, Motion: Normal, Lip Closure: Normal, Oral Mechanism Result: Normal. 3 oz Water Swallow Challenge: Pt able to drink all water without stopping, coughing, choking or throat clearing: Yes Result: PASS. TNKase (Tenecteplase) Screening: Contraindications: Patient reports onset of signs and symptoms of stroke greater than 6 hours ago: Yes. 16:16 Reassessment: Patient appears in no apparent distress at this time. Patient and/or iw family updated on plan of care and expected duration. Pain level reassessed. Patient is alert, oriented x 3, equal unlabored respirations, skin warm/dry/pink. 17:36 Reassessment: attempt to call report, Agnes will call me back. iw Vital Signs: 14:55 BP 155 / 92; Pulse 88; Resp 18; Temp 97.4; Pulse Ox 97% ; Weight 79.38 kg; Height 5 ft. mb9 7 in. ; 16:15 BP 137 / 86; Pulse 85; Resp 15; Pulse Ox 98% ; jl7 14:55 Body Mass Index 27.41 (79.38 kg, 170.18 cm) mb9 NIH Stroke Scale Scores: 15:00 NIHSS Score: 4 ms3 15:28 NIHSS Score: 4 iw ED Course: 14:44 Patient arrived in ED. mr 14:51 Tex Krishnan MD is Attending Physician. rt 14:52 Triage completed. mb9 14:52 Arm band placed on. mb9 14:59 Attending Physician role handed off by Tex Krishnan MD ms3 14:59 Hung Hernández DO is Attending Physician. ms3 15:07 CT Stroke Brain w/o Contrast In Process Unspecified. EDMS 15:20 CT Head Angio In Process Unspecified. EDMS 15:20 CT Neck Angio In Process Unspecified. EDMS 15:25 Inserted saline lock: 22 gauge in right antecubital area, using aseptic technique. iw Blood collected. 15:27 Kimmy Brown, RN is Primary Nurse. iw 16:10 Patient has correct armband on for positive identification. Bed in low position. Call iw light in reach. Side rails up X2. Client placed on continuous cardiac and pulse oximetry monitoring. NIBP monitoring applied. 16:22 Chest Single View In Process Unspecified. EDMS 16:52 Madie Calero MD is Hospitalizing Provider. ms3 17:47 No provider procedures requiring assistance completed. Patient admitted, IV remains in iw place. Administered Medications: 17:24 Drug: Aspirin PO Chewable Tablet 162 mg PO once Route: PO; iw 17:24 Drug: Clopidogrel PO 75 mg PO once Route: PO; iw 17:24 Drug: foLIC Acid PO 1 mg PO once Route: PO; iw Medication: 15:29 VIS not applicable for this client. Point of Care Testing: Blood Glucose: 15:00 Blood Glucose: 109 mg/dL; jl7 Ranges: Outcome: 16:53 Decision to Hospitalize by Provider. ms3 18:11 Admitted to Med/surg accompanied by taurus, via stretcher, Report called to Kristen. FINNEY iw 18:11 Condition: good 18:11 Discharge instructions given to patient, family, Instructed on the need for admit, 18:12 Patient left the ED. iw NIH Stroke Scale - NIH Stroke Score Date: 04/15/2023 Time: 15:00 Total Score = 4 10. Dysarthria (speech clarity - read or repeat words) - 1(Mild to Moderate) 11. Extinction and Inattention (visual/tactile/auditory/spatial/personal) - 0(No abnormality) 1a. Level of Consciousness (LOC) - 0(Alert) 1b. Level of Consciousness (LOC) (Month \\T\\ Age) - 0(Both) 1c. LOC Commands (Open \\T\\ Closes Eyes/Natural Resource Manager) - 0(Both) 2. Best Gaze (Lateral Gaze Paresis) - 0(Normal) 3. Visual Field Loss - 0(No visual loss) 4. Facial Palsy - 2(Partial paralysis) 5a. Left Arm: Motor (10-second hold) - 0(No drift) 5b. Right Arm: Motor (10-second hold) - 0(No drift) 6a. Left Leg: Motor (5-second hold - always test supine) - 1(Drift) 6b. Right Leg: Motor (5-second hold - always test supine) - 0(No drift) 7. Limb Ataxia (finger/nose \\T\\ heel/herrera - test with eyes open) - 0(Absent) 8. Sensory Loss (pinprick arms/legs/face) - 0(Normal) 9. Best Language: Aphasia (description/naming/reading) - 0(No aphasia) Initials: ms3 NIH Stroke Scale - NIH Stroke Score Date: 04/15/2023 Time: 15:28 Total Score = 4 10. Dysarthria (speech clarity - read or repeat words) - 1(Mild to Moderate) 11. Extinction and Inattention (visual/tactile/auditory/spatial/personal) - 0(No abnormality) 1a. Level of Consciousness (LOC) - 0(Alert) 1b. Level of Consciousness (LOC) (Month \\T\\ Age) - 0(Both) 1c. LOC Commands (Open \\T\\ Closes Eyes/Natural Resource Manager) - 0(Both) 2. Best Gaze (Lateral Gaze Paresis) - 0(Normal) 3. Visual Field Loss - 0(No visual loss) 4. Facial Palsy - 1(Minor Paralysis) 5a. Left Arm: Motor (10-second hold) - 1(Drift) 5b. Right Arm: Motor (10-second hold) - 0(No drift) 6a. Left Leg: Motor (5-second hold - always test supine) - 1(Drift) 6b. Right Leg: Motor (5-second hold - always test supine) - 0(No drift) 7. Limb Ataxia (finger/nose \\T\\ heel/herrera - test with eyes open) - 0(Absent) 8. Sensory Loss (pinprick arms/legs/face) - 0(Normal) 9. Best Language: Aphasia (description/naming/reading) - 0(No aphasia) Initials: iw Signatures: Dispatcher [employer] EDMS Mili Vargas, Deshawn Hess mr Kimmy Brown, RN RN iw Deborah Ramirez RN RN jl7 Hung Hernández DO DO ms3 Mili Haile, SHARMIN RN mb9 Tex Krishnan MD MD rt Corrections: (The following items were deleted from the chart) 14:53 14:50 Chief complaint: Patient's son or daughter states: "At 7am, he called me mb9 saying he was weak, had slurred speech, and numbness in his right leg. He was walking to the house, fell, and had lower leg weakness. He is not acting like himself" mb9 14:55 14:54 Social history: Smoking status: Patient denies any tobacco usage or mb9 history of. mb9 14:58 14:50 Acuity: MONI 3 mb9 mb9 14:58 14:55 Pulse 88bpm; Resp 18bpm; Pulse Ox 97%; Temp 97.4F; 79.38 kg; Height 5 ft. mb9 7 in.; BMI: 27.4; mb9 16:25 15:22 In radiology for Chest Single View+RAD.RAD.BRZ. EDMS EDMS
--- NOTE | 2023-04-15 17:09 | P.HP ---
Certification for Inpatient Patient admitted to: Inpatient With expected LOS: <2 Midnights Patient will require the following post-hospital care: None Practitioner: I am a practitioner with admitting privileges, knowledge of patient current condition, hospital course, and medical plan of care. Services: Services provided to patient in accordance with Admission requirements found in Title 42 Section 412.3 of the Code of Federal Regulations Patient History Date of Service: 04/15/23 Reason for admission: Stroke, Left sided weakness, History of Present Illness: 73-year-old male with a past medical history of hypertension presents to the emergency room with slurred speech and trouble walking. He reports symptoms started at 7 AM. He reports fall with lower extremity weakness. Reports calling his son for help and brought to the ER. He denies chest pain, fever, chills, shortness of breath, cough, wheezing, nausea vomiting diarrhea. Reports left facial droop left lower extremity weakness with drift. Alert and oriented x3. Vital signs blood pressure 155/92, 88 respirations 18, O2 sat 97% temperature 97.4 NIH stroke stroke scale 4. Dysarthria 1, facial palsy 1, left arm drift 1, left lower extremity drift 1. plan to admit for ischemic CVA, dysarthria, essential hypertension, elevated troponin. Neurology Dr. Helm to consult. Recommended medical management, aspirin, Plavix, statin, folic acid.CT of the head without contrast no ICH, no evidence of intracranial process, right basal ganglia focus near CSF density, may represent small remote infarct or prominent perivascular spaceEKG normal sinus rhythm rate 82 QRS is normal, normal sinus rhythm with nonspecific ST changes. - Past Medical/Surgical History Diabetic: No -: Essential hypertension -: Hyperlipidemia -: tobacco use - Social History Smoking Status: Current every day smoker Smoking therapy provided: Yes Alcohol use: No CD- Drugs: No Caffeine use: Yes Place of Residence: Home Review of Systems 10-point ROS is otherwise unremarkable Physical Examination - Physical Exam General: Alert, In no apparent distress, Oriented x3 HEENT: Atraumatic, PERRLA Neck: Supple, 2+ carotid pulse no bruit Respiratory: Clear to auscultation bilaterally, Normal air movement Cardiovascular: No edema, Normal pulses, Regular rate/rhythm Capillary refill: <2 Seconds Gastrointestinal: Normal bowel sounds, Soft and benign Musculoskeletal: Other (LUE, LLE weakness, 3/5) Integumentary: No rashes, No breakdown Neurological: Abnormal speech - Studies Laboratory Data (last 24 hrs) 04/15/23 04/15/23 04/15/23 15:08 15:08 15:08 WBC 17.20 H Hgb 16.6 Hct 49.0 Plt Count 256 PT 11.0 INR 1.00 APTT 31.0 Sodium 139 Potassium 3.8 BUN 11 Creatinine 0.85 Glucose 101 Magnesium 2.5 H Total Bilirubin 0.7 AST 46 H ALT 35 Alkaline Phosphatase 80 Assessment and Plan - Plan Assessment plan Ischemic CVA left hemiparesis Dysarthria Neurology consult, PT, speech eval Recommended medical management, aspirin, Plavix, statin, folic acid. CT of the head no acute abnormality MRI of the brain ordered, fall precautions CT of the head without contrast no ICH, no evidence of intracranial process, right basal ganglia focus near CSF density, may represent small remote infarct or prominent perivascular spaceEKG normal sinus rhythm rate 82 QRS is normal, normal sinus rhythm with nonspecific ST changes. Vital signs blood pressure 155/92, 88 respirations 18, O2 sat 97% temperature 97.4 NIH stroke stroke scale 4. Dysarthria 1, facial palsy 1, left arm drift 1, left lower extremity drift 1. plan to admit for ischemic CVA, dysarthria, essential hypertension, elevated troponin. Essential hypertension Hyperlipidemia Resume appropriate home meds tobacco use educate on tobacco cessation, nicotine patch DVT prophylaxis lovenox Full code Diet cardiac Discharge Plan: Home Plan to discharge in: 48 Hours - Advance Directives Does patient have a Living Will: No Does patient have a Durable POA for Healthcare: No - Code Status/Comfort Care Code Status: Full Code Physician Review: Patient Assessed, Agree with Above Assessment and Plan Critical Care: No Time Spent Managing Pts Care (In Minutes): 55
[2023-04-15] MEDS ORDERED: ASPIRIN 81 MG CHEWABLE TABLET ONE (17:25)
[2023-04-15] MEDS ORDERED: CLOPIDOGREL 75 MG TABLET ONE (17:26)
[2023-04-15] MEDS ORDERED: FOLIC ACID 1 MG TABLET ONE (17:26)
[2023-04-15] MEDS ORDERED: NA CHLORIDE 0.9% 1,000 ML IV SCH (18:24)
[2023-04-15] MEDS ORDERED: ONDANSETRON 4 MG/2 ML VIAL IV PRN (18:24)
[2023-04-15] MEDS: NICOTINE 14 MG/PAT TD SCH (21:00)
[2023-04-15] MEDS: ATORVASTATIN 80 MG TAB PO SCH (21:00)
[2023-04-16 03:22] LABS: Absolute Lymphocytes (CBC) 2.9 K/uL (0.7-4.9); Hematocrit 46.2 % (39.6-49.0); Lymphocytes % 25.1 % (15.3-44.8); MCV 97.7 fL (80-100); MPV 8.3 fL (7.6-11.3); Platelets 259 thou/uL (152-406); RBC Red Blood Cell Count 4.73 M/uL (4.33-5.43)
[2023-04-16 03:25] LABS: Magnesium 2.5 mg/dL (1.6-2.4); Potassium 3.1 mEq/L (3.5-5.1)
--- NOTE | 2023-04-16 06:45 | P.PN ---
Subjective Date of Service: 04/16/23 Chief Complaint: Stroke, Left sided weakness, speaking, good family supoort, Famiily at bedside, patient reports generalized weakness today, LUE/LLE weakness Review of Systems ROS Gillian Physical Examination - Vital Signs Temperature: 97.6 F Blood Pressure: 138/82 Pulse: 51 Respirations: 17 Pulse Ox (%): 96 - Physical Exam General: Alert, Oriented x3, Other (mild dysarthria) HEENT: Atraumatic, Normocephalic Neck: Supple, 2+ carotid pulse no bruit Respiratory: Clear to auscultation bilaterally, Normal air movement Cardiovascular: No edema, Normal pulses Capillary refill: <2 Seconds Gastrointestinal: Normal bowel sounds, Soft and benign Musculoskeletal: Other (LUE, LLE weakness 3/5) Integumentary: No rashes, No breakdown Neurological: Abnormal speech, Abnormal strength - Studies Laboratory Data (last 24 hrs) 04/15/23 04/15/23 04/15/23 15:08 15:08 15:08 WBC 17.20 H Hgb 16.6 Hct 49.0 Plt Count 256 PT 11.0 INR 1.00 APTT 31.0 Sodium 139 Potassium 3.8 BUN 11 Creatinine 0.85 Glucose 101 Magnesium 2.5 H Total Bilirubin 0.7 AST 46 H ALT 35 Alkaline Phosphatase 80 Assessment And Plan - Plan Assessment plan Ischemic CVA left hemiparesis Dysarthria Neurology consult, PT, speech eval Recommended medical management, aspirin, Plavix, statin, folic acid. MRI of the brain ordered, fall precautions CT of the head without contrast no ICH, no evidence of intracranial process, right basal ganglia focus near CSF density, may represent small remote infarct or prominent perivascular spaceEKG normal sinus rhythm rate 82 QRS is normal, normal sinus rhythm with nonspecific ST changes. Vital signs blood pressure 155/92, 88 respirations 18, O2 sat 97% temperature 97.4 NIH stroke stroke scale 4. Dysarthria 1, facial palsy 1, left arm drift 1, left lower extremity drift 1. plan to admit for ischemic CVA, dysarthria, essential hypertension, elevated troponin. DC Plan SS inpatient acute rehab Essential hypertension Hyperlipidemia Resume appropriate home meds tobacco use educate on tobacco cessation, nicotine patch DVT prophylaxis lovenox Full code Diet cardiac Discharge Plan: Other (Rehab) Plan to discharge in: 48 Hours - Code Status/Comfort Care Code Status: Full Code Physician Review: Patient Assessed, Agree with Above Assessment and Plan Critical Care: No Time Spent Managing PTS Care (In Minutes): 35
[2023-04-16] MEDS: AMLODIPINE 10 MG TAB PO SCH (09:00)
[2023-04-16] MEDS: FOLIC ACID 1 MG TABLET PO SCH (09:00)
[2023-04-16] MEDS: ASPIRIN EC 81 MG TAB PO SCH (09:00)
[2023-04-16] MEDS: CLOPIDOGREL 75 MG TABLET PO SCH (09:00)
[2023-04-16] MEDS ORDERED: POTASSIUM 25 MEQ EFFERV TAB PO ONE (09:00)
[2023-04-16] MEDS: NICOTINE 14 MG/PAT TD SCH (09:00)
--- NOTE | 2023-04-16 14:24 | RAD REPORT ---
EXAM DESCRIPTION: MRI - Brain Wo Cont - 04/16/2023 2:06 pm CLINICAL HISTORY: cva left sided weakness Headache, drowsiness, CVA symptomology COMPARISON: Head angio dated 04/15/2023; Neck Angio dated 04/15/2023; Ct Stroke Brain Wo Cont dated 04/15/2023; Head C Spine Mpr Wo Con dated 11/09/2022 TECHNIQUE: Multi-sequence, multiplanar MR imaging of the brain was performed without contrast. FINDINGS: No intracranial hemorrhage, hydrocephalus or extra-axial fluid collections.Mild generalize d brain atrophy with chronic microvascular ischemic changes noted in the periventricular and deep whi te matter. No edema or shift of midline structures. No findings to suspect brain mass. Acute CVA is s een right basal ganglia and periventricular white matter measuring approximately 27 x 15 mm. Midline structures are normally formed. Mastoid air cells and paranasal sinuses are clear. IMPRESSION: Acute nonhemorrhagic CVA right basal ganglia extending superiorly along the right perive ntricular white matter measuring 25 x 15 mm.
--- NOTE | 2023-04-16 15:58 | RAD REPORT ---
EXAM DESCRIPTION: RAD - Barium Swallow Modified - 04/16/2023 3:53 pm CLINICAL HISTORY: Dysphagia COMPARISON: <Comparisons> TECHNIQUE: The patient was given liquid, semi-solid and solid forms of barium. Lateral view fluorosc opic imaging was performed in conjunction with speech pathology service. FINDINGS: Administered: Thin, nectar, honey, pudding, mech soft. Laryngeal penetration: cleared with nectar, mech soft Aspiration: cough with thin liquid via spoon Pharyngeal residue: Minimal with honey think liquid in vallecular Total fluoroscopy time: 1 minutes and 20 seconds
[2023-04-16] MEDS: KCL 20 MEQ/100 mL IVPB 20 MEQ/100 ML BAG IV SCH ×2 (16:00→20:36)
[2023-04-16] MEDS: ENOXAPARIN 40 MG/0.4 ML SQ SCH (16:00)
[2023-04-16] MEDS ORDERED: NA CHLORIDE 0.9% 0 ML ONE (16:12)
[2023-04-16] MEDS: ATORVASTATIN 80 MG TAB PO SCH (20:36)
[2023-04-16] MEDS ORDERED: NA CHLORIDE 0.9% 250 ML ONE (23:01)
--- NOTE | 2023-04-17 06:51 | P.PN ---
Subjective Date of Service: 04/17/23 Chief Complaint: Stroke, Left sided weakness, sitting up in chair, diet adv to purreed honey diet per speech, tolerating well, at bedside speaking, good family supoort, Famiily at bedside, patient reports generalized weakness today, LUE/LLE weakness Physical Examination - Vital Signs Temperature: 97.2 F Blood Pressure: 160/87 Pulse: 73 Respirations: 16 Pulse Ox (%): 96 Assessment And Plan - Plan Assessment plan Ischemic CVA left hemiparesis Dysarthria Neurology consult, permissive HTN PT, speech eval Recommended medical management, aspirin, Plavix, statin, folic acid. MRI of the brain ordered IMPRESSION: Acute nonhemorrhagic CVA right basal ganglia extending superiorly along the right periventricular white matter measuring 25 x [address] of the head without contrast no ICH, no evidence of intracranial process, right basal ganglia focus near CSF density, may represent small remote infarct or prominent perivascular spaceEKG normal sinus rhythm rate 82 QRS is normal, normal sinus rhythm with nonspecific ST changes. Vital signs blood pressure 155/92, 88 respirations 18, O2 sat 97% temperature 97.4 NIH stroke stroke scale 4. Dysarthria 1, facial palsy 1, left arm drift 1, left lower extremity drift 1. plan to admit for ischemic CVA, dysarthria, essential hypertension, elevated troponin. DC Plan SS inpatient acute rehab Speech on honey thick/pureed diet Essential hypertension Hyperlipidemia Resume appropriate home meds tobacco use educate on tobacco cessation, nicotine patch DVT prophylaxis lovenox Full code Diet cardiac Discharge Plan: Other (rehab) Plan to discharge in: 48 Hours - Code Status/Comfort Care Code Status: Full Code Physician Review: Patient Assessed, Agree with Above Assessment and Plan Critical Care: No Time Spent Managing PTS Care (In Minutes): 35
[2023-04-17 08:09] LABS: Hematocrit 46.2 % (39.6-49.0); MCV 97.7 fL (80-100); MPV 8.1 fL (7.6-11.3); Platelets 236 thou/uL (152-406); RBC Red Blood Cell Count 4.73 M/uL (4.33-5.43)
[2023-04-17 08:11] LABS: Magnesium 2.6 mg/dL (1.6-2.4); Potassium 3.6 mEq/L (3.5-5.1)
[2023-04-17] MEDS: NICOTINE 14 MG/PAT TD SCH (09:00)
[2023-04-17 09:17] LABS: Blood Morphology Comment NOT SEEN (NOT SEEN); Platelet Estimate ADEQ
[2023-04-17] MEDS: ENOXAPARIN 40 MG/0.4 ML SQ SCH (10:26)
[2023-04-17] MEDS: CLOPIDOGREL 75 MG TABLET PO SCH (10:27)
[2023-04-17] MEDS: AMLODIPINE 10 MG TAB PO SCH (10:27)
[2023-04-17] MEDS: FOLIC ACID 1 MG TABLET PO SCH (10:27)
[2023-04-17] MEDS: ASPIRIN EC 81 MG TAB PO SCH (10:27)
[2023-04-17] MEDS: ATORVASTATIN 80 MG TAB PO SCH (20:03)
[2023-04-18 03:18] LABS: Absolute Lymphocytes (CBC) 2.8 K/uL (0.7-4.9); Hematocrit 43.6 % (39.6-49.0); Lymphocytes % 27.3 % (15.3-44.8); MCV 97.3 fL (80-100); MPV 8.7 fL (7.6-11.3); Platelets 215 thou/uL (152-406); RBC Red Blood Cell Count 4.48 M/uL (4.33-5.43)
[2023-04-18 03:23] LABS: Magnesium 2.5 mg/dL (1.6-2.4); Potassium 3.2 mEq/L (3.5-5.1)
--- NOTE | 2023-04-18 06:09 | ECHO ---
HEIGHT: 5 ft 5 in WEIGHT: 160 lb 0 oz DATE OF STUDY: 04/17/[address]: Tameka Medina BRIDGE CARPENTERMerritt 2-DIMENSIONAL: YES M.MODE: YES DOPPLER: YES COLOR FLOW: YES TDS: PORTABLE: YES DEFINITY: BUBBLE STUDY: DIAGNOSIS: STROKE CARDIAC HISTORY: CATHERIZATION: NO SURGERY: NO PROSTHETIC VALVE: NO PACEMAKER: NO MEASUREMENTS (cm) DIASTOLIC (NORMALS) SYSTOLIC (NORMALS) IVSd 1.1 (0.6-1.2) LA Diam 3.8 (1.9-4.0) LVEF 61% LVIDd 4.8 (3.5-5.7) LVIDs 3.3 (2.0-3.5) %FS 33% LVPWd 1.2 (0.6-1.2) Ao Diam 3.1 (2.0-3.7) 2 DIMENSIONAL ASSESSMENT: RIGHT ATRIUM: NORMAL LEFT ATRIUM: NORMAL RIGHT VENTRICLE: NORMAL LEFT VENTRICLE: NORMAL TRICUSPID VALVE: NORMAL MITRAL VALVE: MILD MITRAL REGURGITATION PULMONIC VALVE: NOT WELL SEEN AORTIC VALVE: NORMAL PERICARDIAL EFFUSION: NONE AORTIC ROOT: NORMAL LEFT VENTRICULAR WALL MOTION: NORMAL DOPPLER/COLOR FLOW: SEE BELOW COMMENTS: 1. POR WINDOWS 2. LEFT VENTRICULAR EJECTION FRACTION IS NORMAL 55-60% 3. MILD MITRAL REGURGITATION TECHNOLOGIST: ALF HERNANDEZ
--- NOTE | 2023-04-18 08:03 | P.PN ---
Subjective Date of Service: 04/18/23 Chief Complaint: Stroke, Left sided weakness, Subjective: Improving sitting up in chair, diet adv to purreed honey diet per speech, tolerating well, at bedside speaking, good family supoort, Famiily at bedside, patient reports generalized weakness today, LUE/LLE weakness - Physical Exam General: Alert, Oriented x3, Other (mild dysarthria) HEENT: Atraumatic, Normocephalic Neck: Supple, 2+ carotid pulse no bruit Respiratory: Clear to auscultation bilaterally, Normal air movement Cardiovascular: No edema, Normal pulses Capillary refill: <2 Seconds Gastrointestinal: Normal bowel sounds, Soft and benign Musculoskeletal: Other (LUE, LLE weakness 3/5) Integumentary: No rashes, No breakdown Neurological: Abnormal speech, Abnormal strength Physical Examination - Vital Signs Temperature: 98 F Blood Pressure: 166/79 Pulse: 52 Respirations: 20 Pulse Ox (%): 95 Assessment And Plan - Plan Assessment plan Ischemic CVA left hemiparesis Dysarthria Neurology consult, permissive HTN PT, speech eval Recommended medical management, aspirin, Plavix, statin, folic acid. MRI of the brain ordered IMPRESSION: Acute nonhemorrhagic CVA right basal ganglia extending superiorly along the right periventricular white matter measuring 25 x [address] of the head without contrast no ICH, no evidence of intracranial process, right basal ganglia focus near CSF density, may represent small remote infarct or prominent perivascular spaceEKG normal sinus rhythm rate 82 QRS is normal, normal sinus rhythm with nonspecific ST changes. Vital signs blood pressure 155/92, 88 respirations 18, O2 sat 97% temperature 97.4 NIH stroke stroke scale 4. Dysarthria 1, facial palsy 1, left arm drift 1, left lower extremity drift 1. plan to admit for ischemic CVA, dysarthria, essential hypertension, elevated troponin. DC Plan SS inpatient acute rehab Speech on honey thick/pureed diet Essential hypertension Hyperlipidemia Resume appropriate home meds tobacco use educate on tobacco cessation, nicotine patch DVT prophylaxis lovenox Full code Diet cardiac Discharge Plan: Other - Code Status/Comfort Care Code Status: Full Code Physician Review: Patient Assessed, Agree with Above Assessment and Plan Critical Care: No Time Spent Managing PTS Care (In Minutes): 35
[2023-04-18] MEDS ORDERED: POTASSIUM CL SA 10 MEQ TAB PO ONE (08:30)
[2023-04-18] MEDS: ENOXAPARIN 40 MG/0.4 ML SQ SCH (09:00)
[2023-04-18] MEDS: CLOPIDOGREL 75 MG TABLET PO SCH (09:01)
[2023-04-18] MEDS: AMLODIPINE 10 MG TAB PO SCH (09:01)
[2023-04-18] MEDS: ASPIRIN EC 81 MG TAB PO SCH (09:02)
[2023-04-18] MEDS: NICOTINE 14 MG/PAT TD SCH (09:02)
[2023-04-18] MEDS: FOLIC ACID 1 MG TABLET PO SCH (09:02)
[2023-04-18] MEDS ORDERED: KCL 20 MEQ/100 mL IVPB 20 MEQ/100 ML BAG IV ONE (10:00)
[2023-04-18] MEDS ORDERED: NA CHLORIDE 0.9% 250 ML ONE (11:52)
--- NOTE | 2023-04-18 15:27 | EKG ---
Test Date: 2023-04-15 Test Time: 15:29:12 Airbrush Artist: HILL MEASUREMENT RESULTS: Intervals: Rate: 82 SD: 134 QRSD: 102 QT: 394 QTc: 460 [place]: P: 54 SD: 134 QRS: -21 T: 123 INTERPRETIVE STATEMENTS: Normal sinus rhythm Septal infarct, age undetermined ST & T wave abnormality, consider lateral ischemia Abnormal ECG Compared to ECG 04/15/2023 15:28:39 Myocardial infarct finding now present ST (T wave) deviation now present T-wave abnormality no longer present Possible ischemia still present Electronically Signed On 04-18-23 15:15:44 ROLL CUTTER by Shekhar Grayson
--- NOTE | 2023-04-18 15:27 | EKG ---
Test Date: 2023-04-15 Test Time: 15:28:39 Purchasing Administrative Assistant: HILL MEASUREMENT RESULTS: Intervals: Rate: 82 MN: 130 QRSD: 106 QT: 370 QTc: 432 [place]: P: 37 MN: 130 QRS: -23 T: 124 INTERPRETIVE STATEMENTS: Normal sinus rhythm T wave abnormality, consider lateral ischemia Abnormal ECG Compared to ECG 11/15/2022 16:46:31 T-wave abnormality now present Possible ischemia now present Sinus arrhythmia no longer present Left ventricular hypertrophy no longer present Early repolarization no longer present Electronically Signed On 04-18-23 15:15:47 SUBACUTE NURSE by Shekhar Grayson
[2023-04-18] MEDS: NA CHLORIDE 0.9% 1,000 ML IV SCH (19:48)
[2023-04-18] MEDS: ATORVASTATIN 80 MG TAB PO SCH (19:48)
[2023-04-19] MEDS: NA CHLORIDE 0.9% 1,000 ML IV SCH ×3 (05:17→15:35)
--- NOTE | 2023-04-19 08:56 | P.PN ---
Subjective Date of Service: 04/19/23 Chief Complaint: Stroke, Left sided weakness, son at bedside, reports allergies, nasal irriation, no change in LUE/LLE weakness - Physical Exam General: Alert, Oriented x3, Other (mild dysarthria) HEENT: Atraumatic, Normocephalic Neck: Supple, 2+ carotid pulse no bruit Respiratory: Clear to auscultation bilaterally, Normal air movement Cardiovascular: No edema, Normal pulses Capillary refill: <2 Seconds Gastrointestinal: Normal bowel sounds, Soft and benign Musculoskeletal: Other (LUE, LLE weakness 3/5) Integumentary: No rashes, No breakdown Neurological: Abnormal speech, Abnormal strength Review of Systems per HPI Physical Examination - Vital Signs Temperature: 97.7 F Blood Pressure: 157/95 Pulse: 58 Respirations: 16 Pulse Ox (%): 96 Assessment And Plan - Plan Assessment plan Ischemic CVA left hemiparesis Dysarthria Neurology consult, permissive HTN PT, speech eval Recommended medical management, aspirin, Plavix, statin, folic acid. MRI of the brain ordered IMPRESSION: Acute nonhemorrhagic CVA right basal ganglia extending superiorly along the right periventricular white matter measuring 25 x [address] of the head without contrast no ICH, no evidence of intracranial process, right basal ganglia focus near CSF density, may represent small remote infarct or prominent perivascular spaceEKG normal sinus rhythm rate 82 QRS is normal, normal sinus rhythm with nonspecific ST changes. Vital signs blood pressure 155/92, 88 respirations 18, O2 sat 97% temperature 97.4 NIH stroke stroke scale 4. Dysarthria 1, facial palsy 1, left arm drift 1, left lower extremity drift 1. plan to admit for ischemic CVA, dysarthria, essential hypertension, elevated troponin. DC Plan SS inpatient acute rehab Speech on honey thick/pureed diet Essential hypertension Hyperlipidemia Resume appropriate home meds tobacco use educate on tobacco cessation, nicotine patch DVT prophylaxis lovenox Full code Diet cardiac Discharge Plan: Other - Code Status/Comfort Care Code Status: Full Code Physician Review: Patient Assessed, Agree with Above Assessment and Plan Critical Care: No Time Spent Managing PTS Care (In Minutes): 35
[2023-04-19] MEDS: ENOXAPARIN 40 MG/0.4 ML SQ SCH (09:30)
[2023-04-19] MEDS: ASPIRIN EC 81 MG TAB PO SCH (09:30)
[2023-04-19] MEDS: FOLIC ACID 1 MG TABLET PO SCH (09:30)
[2023-04-19] MEDS: CLOPIDOGREL 75 MG TABLET PO SCH (09:30)
[2023-04-19] MEDS: AMLODIPINE 10 MG TAB PO SCH (09:31)
[2023-04-19] MEDS: NICOTINE 14 MG/PAT TD SCH (09:31)
[2023-04-19] MEDS ORDERED: LORATADINE 10 MG TAB PO PRN (10:00)
[2023-04-19] MEDS: FLUTICASONE 50MCG NASAL SPRAY NAS SCH (10:30)
[2023-04-19] MEDS: ATORVASTATIN 80 MG TAB PO SCH (20:58)
[2023-04-20] MEDS: NA CHLORIDE 0.9% 1,000 ML IV SCH ×3 (01:58→11:00)
--- NOTE | 2023-04-20 07:59 | P.PN ---
Subjective Date of Service: 04/20/23 Chief Complaint: Stroke, Left sided weakness, reports RLE pain, no change in LUE/LLE weakness - Physical Exam General: Alert, Oriented x3, Other (mild dysarthria) HEENT: Atraumatic, Normocephalic Neck: Supple, 2+ carotid pulse no bruit Respiratory: Clear to auscultation bilaterally, Normal air movement Cardiovascular: No edema, Normal pulses Capillary refill: <2 Seconds Gastrointestinal: Normal bowel sounds, Soft and benign Musculoskeletal: Other (LUE, LLE weakness 3/5) Integumentary: No rashes, No breakdown Neurological: Abnormal speech, Abnormal strength Review of Systems per [facility] Physical Examination - Vital Signs Temperature: 97.1 F Blood Pressure: 160/86 Pulse: 69 Respirations: 18 Pulse Ox (%): 97 Assessment And Plan - Plan Assessment plan Ischemic CVA left hemiparesis Dysarthria Neurology consult, permissive HTN PT, speech eval Recommended medical management, aspirin, Plavix, statin, folic acid. MRI of the brain ordered IMPRESSION: Acute nonhemorrhagic CVA right basal ganglia extending superiorly along the right periventricular white matter measuring 25 x [address] of the head without contrast no ICH, no evidence of intracranial process, right basal ganglia focus near CSF density, may represent small remote infarct or prominent perivascular spaceEKG normal sinus rhythm rate 82 QRS is normal, normal sinus rhythm with nonspecific ST changes. Vital signs blood pressure 155/92, 88 respirations 18, O2 sat 97% temperature 97.4 NIH stroke stroke scale 4. Dysarthria 1, facial palsy 1, left arm drift 1, left lower extremity drift 1. plan to admit for ischemic CVA, dysarthria, essential hypertension, elevated troponin. DC Plan SS inpatient acute rehab Speech on honey thick/pureed diet Leg pain prn tramadol, Valium muscle relaxer hypokalemia trend electroy replace prn Essential hypertension Hyperlipidemia Resume appropriate home meds tobacco use educate on tobacco cessation, nicotine patch DVT prophylaxis lovenox Full code Diet cardiac Discharge Plan: Home (rehab) Plan to discharge in: 48 Hours - Code Status/Comfort Care Code Status: Full Code Physician Review: Patient Assessed, Agree with Above Assessment and Plan Critical Care: No Time Spent Managing PTS Care (In Minutes): 35
[2023-04-20] MEDS: ENOXAPARIN 40 MG/0.4 ML SQ SCH (08:50)
[2023-04-20] MEDS: AMLODIPINE 10 MG TAB PO SCH (08:50)
[2023-04-20] MEDS: NICOTINE 14 MG/PAT TD SCH (08:51)
[2023-04-20] MEDS: FOLIC ACID 1 MG TABLET PO SCH (08:51)
[2023-04-20] MEDS: CLOPIDOGREL 75 MG TABLET PO SCH (08:51)
[2023-04-20] MEDS: ASPIRIN EC 81 MG TAB PO SCH (08:51)
[2023-04-20] MEDS: FLUTICASONE 50MCG NASAL SPRAY NAS SCH (08:53)
[2023-04-20 10:18] LABS: Absolute Lymphocytes (CBC) 2.3 K/uL (0.7-4.9); Hematocrit 43.5 % (39.6-49.0); Lymphocytes % 24.5 % (15.3-44.8); MCV 96.3 fL (80-100); MPV 8.3 fL (7.6-11.3); Platelets 202 thou/uL (152-406); RBC Red Blood Cell Count 4.51 M/uL (4.33-5.43)
[2023-04-20 10:28] LABS: Potassium 3.2 mEq/L (3.5-5.1)
[2023-04-20] MEDS ORDERED: TRAMADOL HCL 50 MG TAB PO PRN (13:51)
[2023-04-20] MEDS ORDERED: DIAZEPAM 2 MG TABLET PO PRN (13:52)
[2023-04-20] MEDS ORDERED: POTASSIUM 25 MEQ EFFERV TAB PO ONE (14:00)
[2023-04-20] MEDS: ATORVASTATIN 80 MG TAB PO SCH (21:39)
--- NOTE | 2023-04-21 07:54 | P.PN ---
Subjective Date of Service: 04/21/23 Chief Complaint: Stroke, Left sided weakness, reports RLE pain, no change in LUE/LLE weakness - Physical Exam General: Alert, Oriented x3, Other (mild dysarthria) HEENT: Atraumatic, Normocephalic Neck: Supple, 2+ carotid pulse no bruit Respiratory: Clear to auscultation bilaterally, Normal air movement Cardiovascular: No edema, Normal pulses Capillary refill: <2 Seconds Gastrointestinal: Normal bowel sounds, Soft and benign Musculoskeletal: Other (LUE, LLE weakness 3/5) Integumentary: No rashes, No breakdown Neurological: Abnormal speech, Abnormal strength Review of Systems per hpi Physical Examination - Vital Signs Temperature: 97.1 F Blood Pressure: 131/77 Pulse: 56 Respirations: 16 Pulse Ox (%): 96 Assessment And Plan - Plan Assessment plan Ischemic CVA left hemiparesis Dysarthria Neurology consult, permissive HTN PT, speech eval Recommended medical management, aspirin, Plavix, statin, folic acid. MRI of the brain ordered IMPRESSION: Acute nonhemorrhagic CVA right basal ganglia extending superiorly along the right periventricular white matter measuring 25 x [address] of the head without contrast no ICH, no evidence of intracranial process, right basal ganglia focus near CSF density, may represent small remote infarct or prominent perivascular spaceEKG normal sinus rhythm rate 82 QRS is normal, normal sinus rhythm with nonspecific ST changes. Vital signs blood pressure 155/92, 88 respirations 18, O2 sat 97% temperature 97.4 NIH stroke stroke scale 4. Dysarthria 1, facial palsy 1, left arm drift 1, left lower extremity drift 1. plan to admit for ischemic CVA, dysarthria, essential hypertension, elevated troponin. DC Plan SS inpatient acute rehab Speech on honey thick/pureed diet Plan for DC rehab placement Saturday 12 [address] floor pending insurance Leg pain prn tramadol, Valium muscle relaxer hypokalemia trend electroy replace prn Essential hypertension Hyperlipidemia Resume appropriate home meds tobacco use educate on tobacco cessation, nicotine patch DVT prophylaxis lovenox Full code Diet cardiac Discharge Plan: Other (rehab) - Code Status/Comfort Care Code Status: Full Code Physician Review: Patient Assessed, Agree with Above Assessment and Plan Critical Care: No Time Spent Managing PTS Care (In Minutes): 35
[2023-04-21] MEDS: NICOTINE 14 MG/PAT TD SCH (10:01)
[2023-04-21] MEDS: ENOXAPARIN 40 MG/0.4 ML SQ SCH (10:02)
[2023-04-21] MEDS: ASPIRIN EC 81 MG TAB PO SCH (10:02)
[2023-04-21] MEDS: FOLIC ACID 1 MG TABLET PO SCH (10:02)
[2023-04-21] MEDS: CLOPIDOGREL 75 MG TABLET PO SCH (10:02)
[2023-04-21] MEDS: AMLODIPINE 10 MG TAB PO SCH (10:02)
[2023-04-21] MEDS: FLUTICASONE 50MCG NASAL SPRAY NAS SCH (10:03)
[2023-04-21] MEDS: ATORVASTATIN 80 MG TAB PO SCH (19:50)
[2023-04-22] MEDS: ASPIRIN EC 81 MG TAB PO SCH (10:06)
[2023-04-22] MEDS: CLOPIDOGREL 75 MG TABLET PO SCH (10:06)
[2023-04-22] MEDS: FOLIC ACID 1 MG TABLET PO SCH (10:07)
[2023-04-22] MEDS: FLUTICASONE 50MCG NASAL SPRAY NAS SCH (10:07)
[2023-04-22] MEDS: AMLODIPINE 10 MG TAB PO SCH (10:07)
[2023-04-22] MEDS: NICOTINE 14 MG/PAT TD SCH (10:08)
[2023-04-22] MEDS: ENOXAPARIN 40 MG/0.4 ML SQ SCH (10:08)
--- NOTE | 2023-04-22 12:57 | P.PN ---
Subjective Date of Service: 04/22/23 Chief Complaint: Stroke, Left sided weakness, Subjective: No new changes, Improving, Doing well Patient is alert and oriented Denies any pain or discomfort at this time Patient with left-sided weakness , patient is exercising the left hand hand Vitals stable and no acute problems at this time Review of Systems 10-point ROS is otherwise unremarkable Physical Examination - Vital Signs Temperature: 97.0 F Blood Pressure: 148/86 Pulse: 50 Respirations: 18 Pulse Ox (%): 97 - Physical Exam General: Alert, Oriented x3 HEENT: Atraumatic, PERRLA Respiratory: Clear to auscultation bilaterally, Normal air movement Cardiovascular: No edema, Normal pulses, Normal S1 S2 Capillary refill: <2 Seconds Gastrointestinal: Normal bowel sounds, Soft and benign Musculoskeletal: No clubbing, No swelling, Other (Left extremity weakness) Integumentary: No rashes, No breakdown, No warmth Neurological: Normal speech, Normal tone, Sensation intact Assessment And Plan - Current Problems (Diagnosis) (1) CVA (cerebral vascular accident) Current Visit: Yes Status: Acute Qualifiers: CVA mechanism: unspecified Qualified Code(s): I63.9 - Cerebral infarction, unspecified (2) Left hemiparesis Current Visit: Yes Status: Acute (3) Dysarthria Current Visit: Yes Status: Acute (4) Hypertension Current Visit: Yes Status: Chronic Qualifiers: Hypertension type: primary hypertension Qualified Code(s): I10 - Essential (primary) hypertension (5) Hyperlipidemia Current Visit: Yes Status: Acute - Plan Assessment plan Ischemic CVA left hemiparesis Dysarthria Acute, improving patient is waiting for rehab approval, Ongoing PT and OT for active and passive exercises On aspirin and Plavix Neurology consult, permissive HTN PT, speech eval Recommended medical management, aspirin, Plavix, statin, folic acid. MRI of the brain ordered IMPRESSION: Acute nonhemorrhagic CVA right basal ganglia extending superiorly along the right periventricular white matter measuring 25 x [address] of the head without contrast no ICH, no evidence of intracranial process, right basal ganglia focus near CSF density, may represent small remote infarct or prominent perivascular spaceEKG normal sinus rhythm rate 82 QRS is normal, normal sinus rhythm with nonspecific ST changes. Vital signs blood pressure 155/92, 88 respirations 18, O2 sat 97% temperature 97.4 NIH stroke stroke scale 4. Dysarthria 1, facial palsy 1, left arm drift 1, left lower extremity drift 1. plan to admit for ischemic CVA, dysarthria, essential hypertension, elevated troponin. DC Plan SS inpatient acute rehab Speech on honey thick/pureed diet Plan for DC rehab placement Sunday 04/22 5[address] floor pending insurance Leg pain prn tramadol, Valium muscle relaxer hypokalemia trend electroy replace prn Essential hypertension Chronic, controlled Hyperlipidemia Chronic, controlled on statins , resume appropriate home meds tobacco use educate on tobacco cessation, nicotine patch DVT prophylaxis lovenox Full code Diet cardiac Discharge Plan: Home Plan to discharge in: 24 Hours - Code Status/Comfort Care Code Status Assessed: Yes (full code) Code Status: Full Code Physician Review: Patient Assessed, Agree with Above Assessment and Plan Critical Care: No Time Spent Managing PTS Care (In Minutes): 35 (minutes)
[2023-04-22] MEDS: ATORVASTATIN 80 MG TAB PO SCH (20:19)
[2023-04-23 08:49] LABS: Potassium 3.1 mEq/L (3.5-5.1)
[2023-04-23] MEDS: CLOPIDOGREL 75 MG TABLET PO SCH (09:29)
[2023-04-23] MEDS: FOLIC ACID 1 MG TABLET PO SCH (09:29)
[2023-04-23] MEDS: AMLODIPINE 10 MG TAB PO SCH (09:30)
[2023-04-23] MEDS: FLUTICASONE 50MCG NASAL SPRAY NAS SCH (09:31)
[2023-04-23] MEDS: ASPIRIN EC 81 MG TAB PO SCH (09:31)
[2023-04-23] MEDS: NICOTINE 14 MG/PAT TD SCH (09:32)
[2023-04-23] MEDS: ENOXAPARIN 40 MG/0.4 ML SQ SCH (09:32)
--- NOTE | 2023-04-23 09:50 | P.PN ---
Subjective Date of Service: 04/23/23 Chief Complaint: Stroke, Left sided weakness, Subjective: No new changes, Improving, Doing well Patient is alert and oriented Denies any pain or discomfort at this time Patient with left-sided weakness Pending transfer to rehab Vitals stable and no acute problems at this time <Glory Berman - Last Filed: 04/23/23 09:48> Date of Service: 04/23/23 <Piyush Mccannliudmilamitchvíctor Sebastian - Last Filed: 04/23/23 18:03> Review of Systems 10-point ROS is otherwise unremarkable <Glory Berman - Last Filed: 04/23/23 09:48> Physical Examination - Vital Signs Temperature: 97.7 F Blood Pressure: 146/86 Pulse: 66 Respirations: 20 Pulse Ox (%): 96 - Physical Exam General: Alert, In no apparent distress, Oriented x3 HEENT: Atraumatic, Normocephalic Neck: Supple, 2+ carotid pulse no bruit Respiratory: Clear to auscultation bilaterally, Normal air movement Cardiovascular: No edema, Normal pulses, Regular rate/rhythm, Normal S1 S2 Capillary refill: <2 Seconds Gastrointestinal: Normal bowel sounds, Soft and benign Musculoskeletal: No clubbing, No swelling, No contractures, Other (Left-sided hemiplegia) Integumentary: No rashes, No breakdown, No significant lesion Neurological: Normal speech, Normal tone, Normal affect, Other (Left hemiplegia) <Glory Berman - Last Filed: 04/23/23 09:48> Assessment And Plan - Current Problems (Diagnosis) (1) CVA (cerebral vascular accident) Current Visit: Yes Status: Acute Qualifiers: CVA mechanism: unspecified Qualified Code(s): I63.9 - Cerebral infarction, unspecified (2) Left hemiparesis Current Visit: Yes Status: Acute (3) Dysarthria Current Visit: Yes Status: Acute (4) Hypertension Current Visit: Yes Status: Chronic Qualifiers: Hypertension type: primary hypertension Qualified Code(s): I10 - Essential (primary) hypertension (5) Hyperlipidemia Current Visit: Yes Status: Acute - Plan Assessment plan Ischemic CVA left hemiparesis Dysarthria Acute, improving patient is waiting for rehab approval, Ongoing PT and OT for active and passive exercises On aspirin and Plavix Neurology consult, permissive HTN PT, speech eval Recommended medical management, aspirin, Plavix, statin, folic acid. MRI of the brain ordered IMPRESSION: Acute nonhemorrhagic CVA right basal ganglia extending superiorly along the right periventricular white matter measuring 25 x [address] of the head without contrast no ICH, no evidence of intracranial process, right basal ganglia focus near CSF density, may represent small remote infarct or prominent perivascular spaceEKG normal sinus rhythm rate 82 QRS is normal, normal sinus rhythm with nonspecific ST changes. Vital signs blood pressure 155/92, 88 respirations 18, O2 sat 97% temperature 97.4 NIH stroke stroke scale 4. Dysarthria 1, facial palsy 1, left arm drift 1, left lower extremity drift 1. plan to admit for ischemic CVA, dysarthria, essential hypertension, elevated troponin. DC Plan SS inpatient acute rehab Speech on honey thick/pureed diet Plan for DC rehab placement 04/22 5th floor pending insurance Leg pain prn tramadol, Valium muscle relaxer hypokalemia trend electroy replace prn Essential hypertension Chronic, controlled Hyperlipidemia Chronic, controlled on statins , resume appropriate home meds tobacco use educate on tobacco cessation, nicotine patch DVT prophylaxis lovenox Full code Diet cardiac Discharge Plan: Other (Rehab) Plan to discharge in: 48 Hours - Code Status/Comfort Care Code Status Assessed: Yes (Full code) Code Status: Full Code Physician Review: Patient Assessed, Agree with Above Assessment and Plan Critical Care: No Time Spent Managing PTS Care (In Minutes): 35 (Minutes) <Glory Berman - Last Filed: 04/23/23 09:48> Physician Review Additional Text: 04/23/23 18:03 Pt seen and examined. I agree withe note by the MEMBERSHIP ADMINISTRATOR. Pt is waiting for inpatient rehab placement. <Dayton Mccann - Last Filed: 04/23/23 18:03>
[2023-04-23] MEDS: KCL 20 MEQ/100 mL IVPB 20 MEQ/100 ML BAG IV SCH ×2 (11:15→15:51)
[2023-04-23] MEDS ORDERED: NA CHLORIDE 0.9% 500 ML ONE (11:25)
[2023-04-23] MEDS: ENSURE ENLIVE 237 ML CAN PO SCH (21:00)
[2023-04-23] MEDS: ATORVASTATIN 80 MG TAB PO SCH (22:48)
[2023-04-24 05:13] VITALS: BMI 24.3
[2023-04-24] MEDS ORDERED: POTASSIUM CL SA 10 MEQ TAB PO ONE (09:00)
[2023-04-24] MEDS: FLUTICASONE 50MCG NASAL SPRAY NAS SCH (09:00)
[2023-04-24] MEDS: ENSURE ENLIVE 237 ML CAN PO SCH ×2 (09:00→20:36)
--- NOTE | 2023-04-24 09:42 | P.PN ---
Subjective Date of Service: 04/24/23 Chief Complaint: Stroke, Left sided weakness, Subjective: No new changes, Improving, Working w/ PT, Doing well Patient is alert and oriented Denies any pain or discomfort at this time Patient with left-sided weakness Pending transfer to rehab Vitals stable and no acute problems at this time <Glory Berman - Last Filed: 04/24/23 09:37> Date of Service: 04/24/23 <Salud Mccannmitchvíctor Sebastian - Last Filed: 04/24/23 15:08> Review of Systems 10-point ROS is otherwise unremarkable <Glory Berman - Last Filed: 04/24/23 09:37> Physical Examination - Vital Signs Temperature: 97.1 F Blood Pressure: 138/70 Pulse: 62 Respirations: 20 Pulse Ox (%): 97 - Physical Exam General: Alert, Oriented x3 HEENT: Atraumatic, Normocephalic Neck: Supple, 2+ carotid pulse no bruit Respiratory: Clear to auscultation bilaterally, Normal air movement Cardiovascular: No edema, Normal pulses Capillary refill: <2 Seconds Gastrointestinal: Normal bowel sounds, Soft and benign Musculoskeletal: No clubbing, No swelling, No contractures, Other (Left hemiplegia) Integumentary: No rashes, No breakdown Neurological: Normal speech, Normal tone, Normal affect <Glory Berman - Last Filed: 04/24/23 09:37> Assessment And Plan - Current Problems (Diagnosis) (1) CVA (cerebral vascular accident) Current Visit: Yes Status: Acute Qualifiers: CVA mechanism: unspecified Qualified Code(s): I63.9 - Cerebral infarction, unspecified (2) Left hemiparesis Current Visit: Yes Status: Acute (3) Dysarthria Current Visit: Yes Status: Acute (4) Hypertension Current Visit: Yes Status: Chronic Qualifiers: Hypertension type: primary hypertension Qualified Code(s): I10 - Essential (primary) hypertension (5) Hyperlipidemia Current Visit: Yes Status: Acute - Plan Assessment plan Ischemic CVA left hemiparesis Dysarthria Acute, improving patient is waiting for rehab approval, Ongoing PT and OT for active and passive exercises On aspirin and Plavix Neurology consult, permissive HTN PT, speech eval Recommended medical management, aspirin, Plavix, statin, folic acid. MRI of the brain ordered IMPRESSION: Acute nonhemorrhagic CVA right basal ganglia extending superiorly along the right periventricular white matter measuring 25 x [address] of the head without contrast no ICH, no evidence of intracranial process, right basal ganglia focus near CSF density, may represent small remote infarct or prominent perivascular spaceEKG normal sinus rhythm rate 82 QRS is normal, normal sinus rhythm with nonspecific ST changes. Vital signs blood pressure 155/92, 88 respirations 18, O2 sat 97% temperature 97.4 NIH stroke stroke scale 4. Dysarthria 1, facial palsy 1, left arm drift 1, left lower extremity drift 1. plan to admit for ischemic CVA, dysarthria, essential hypertension, elevated troponin. DC Plan SS inpatient acute rehab Speech on honey thick/pureed diet Plan for DC rehab placement 04/22 5[address] floor pending insurance Leg pain -Reporting increased pain on the L back -We will continue prn tramadol, Valium muscle relaxer -Ordered x-ray sacrum and BL hip ordered Essential hypertension Chronic, controlled Hyperlipidemia Chronic, controlled on statins , resume appropriate home meds tobacco use educate on tobacco cessation, nicotine patch DVT prophylaxis lovenox Full code Diet cardiac Discharge Plan: Other (Acute rehab) Plan to discharge in: 24 Hours - Code Status/Comfort Care Code Status Assessed: Yes (Full code) Code Status: Full Code Physician Review: Patient Assessed, Agree with Above Assessment and Plan Critical Care: No Time Spent Managing PTS Care (In Minutes): 35 (Minutes) <Glory Berman - Last Filed: 04/24/23 09:37> Physician Review Additional Text: 04/24/23 15:08 Pt seen and examined. i agree with the note by the DIRECTOR CPG. Pt is waiting for inpatient rehab placement. <Dayton Mccann - Last Filed: 04/24/23 15:08>
[2023-04-24] MEDS: ENOXAPARIN 40 MG/0.4 ML SQ SCH (09:47)
[2023-04-24] MEDS: AMLODIPINE 10 MG TAB PO SCH (09:47)
[2023-04-24] MEDS: ASPIRIN EC 81 MG TAB PO SCH (09:47)
[2023-04-24] MEDS: FOLIC ACID 1 MG TABLET PO SCH (09:47)
[2023-04-24] MEDS: CLOPIDOGREL 75 MG TABLET PO SCH (09:48)
[2023-04-24] MEDS: NICOTINE 14 MG/PAT TD SCH (09:48)
--- NOTE | 2023-04-24 12:03 | RAD REPORT ---
EXAM DESCRIPTION: RAD - Hip Right 1 View - 04/24/2023 10:43 am CLINICAL HISTORY: hip arthalgia COMPARISON: No comparisons TECHNIQUE: Right hip, AP view. FINDINGS: There is no fracture or dislocation. Mild right hip degenerative changes. No acute or dest ructive bony process seen. IMPRESSION: Mild right hip degenerative changes.
--- NOTE | 2023-04-24 12:04 | RAD REPORT ---
EXAM DESCRIPTION: RAD - Hip Left 1 View - 04/24/2023 10:43 am CLINICAL HISTORY: worsening arhtralgia COMPARISON: No comparisons TECHNIQUE: Left hip, AP view. FINDINGS: There is no fracture or dislocation. Mild left hip degenerative changes. No acute or destr uctive bony process seen. IMPRESSION: Mild left hip degenerative changes.
--- NOTE | 2023-04-24 14:11 | RAD REPORT ---
EXAM DESCRIPTION: Sacrum And Coccyx - 04/24/2023 10:43 am CLINICAL HISTORY: Worsening dorsalgia COMPARISON: No comparisons TECHNIQUE: Three views of the sacrum and coccyx FINDINGS: No acute fracture or dislocation. No suspicious osseous lesions. Mild spurring along both sacroiliac joints. Mild degenerative changes of the symphysis pubis. IMPRESSION: No acute osseous abnormality of the sacrum and coccyx. Chronic findings as above.
[2023-04-24] MEDS: ATORVASTATIN 80 MG TAB PO SCH (20:36)
[2023-04-25] MEDS: AMLODIPINE 10 MG TAB PO SCH (09:04)
[2023-04-25] MEDS: CLOPIDOGREL 75 MG TABLET PO SCH (09:04)
[2023-04-25] MEDS: ASPIRIN EC 81 MG TAB PO SCH (09:05)
[2023-04-25] MEDS: FOLIC ACID 1 MG TABLET PO SCH (09:06)
[2023-04-25] MEDS: NICOTINE 14 MG/PAT TD SCH (09:07)
[2023-04-25] MEDS: ENOXAPARIN 40 MG/0.4 ML SQ SCH (09:09)
[2023-04-25] MEDS: FLUTICASONE 50MCG NASAL SPRAY NAS SCH (09:13)
[2023-04-25] MEDS: ENSURE ENLIVE 237 ML CAN PO SCH ×2 (09:13→20:44)
[2023-04-25 12:22] VITALS: O2SAT 98
[2023-04-25] MEDS ORDERED: ONDANSETRON 4 MG/2 ML VIAL IV PRN (12:31)
[2023-04-25] MEDS ORDERED: LORATADINE 10 MG TAB PO PRN (12:32)
[2023-04-25] MEDS ORDERED: DIAZEPAM 2 MG TABLET PO PRN (12:33)
[2023-04-25] MEDS ORDERED: TRAMADOL HCL 50 MG TAB PO PRN (12:33)
--- NOTE | 2023-04-25 16:00 | P.PN ---
Date of Service: 04/25/23 Subjective Chief Complaint: Stroke, Left sided weakness, Subjective: No new changes, Improving, Working w/ PT, Doing well Patient is alert and oriented Denies any pain or discomfort at this time Patient with left-sided weakness Pending transfer to rehab Vitals stable and no acute problems at this time Review of Systems 10-point ROS is otherwise unremarkable Physical Examination - Vital Signs Temperature: 97.1 F Blood Pressure: 149/75 Pulse: 62 Respirations: 20 Pulse Ox (%): 97 - Physical Exam General: Alert, Oriented x3 HEENT: Atraumatic, Normocephalic Neck: Supple, 2+ carotid pulse no bruit Respiratory: Clear to auscultation bilaterally, Normal air movement Cardiovascular: No edema, Normal pulses Capillary refill: <2 Seconds Gastrointestinal: Normal bowel sounds, Soft and benign Musculoskeletal: No clubbing, No swelling, No contractures, Other (Left hemiplegia) Integumentary: No rashes, No breakdown Neurological: Normal speech, Normal tone, Normal affect Assessment And Plan - Current Problems (Diagnosis) (1) CVA (cerebral vascular accident) Current Visit: Yes Status: Acute Qualifiers: CVA mechanism: unspecified Qualified Code(s): I63.9 - Cerebral infarction, unspecified (2) Left hemiparesis Current Visit: Yes Status: Acute (3) Dysarthria Current Visit: Yes Status: Acute (4) Hypertension Current Visit: Yes Status: Chronic Qualifiers: Hypertension type: primary hypertension Qualified Code(s): I10 - Essential (primary) hypertension (5) Hyperlipidemia Current Visit: Yes Status: Acute - Plan Assessment plan Ischemic CVA left hemiparesis Dysarthria Acute, improving patient is waiting for rehab approval, Ongoing PT and OT for active and passive exercises On aspirin and Plavix Neurology consult, permissive HTN PT, speech eval Recommended medical management, aspirin, Plavix, statin, folic acid. MRI of the brain ordered IMPRESSION: Acute nonhemorrhagic CVA right basal ganglia extending superiorly along the right periventricular white matter measuring 25 x [address] of the head without contrast no ICH, no evidence of intracranial process, right basal ganglia focus near CSF density, may represent small remote infarct or prominent perivascular spaceEKG normal sinus rhythm rate 82 QRS is normal, normal sinus rhythm with nonspecific ST changes. Vital signs blood pressure 155/92, 88 respirations 18, O2 sat 97% temperature 97.4 NIH stroke stroke scale 4. Dysarthria 1, facial palsy 1, left arm drift 1, left lower extremity drift 1. plan to admit for ischemic CVA, dysarthria, essential hypertension, elevated troponin. DC Plan SS inpatient acute rehab Speech on honey thick/pureed diet Plan for DC rehab placement 04/22 [address] floor pending insurance Leg pain -Reporting increased pain on the L back -We will continue prn tramadol, Valium muscle relaxer -Ordered x-ray sacrum and BL hip ordered Essential hypertension Chronic, controlled Hyperlipidemia Chronic, controlled on statins , resume appropriate home meds tobacco use educate on tobacco cessation, nicotine patch DVT prophylaxis lovenox Full code Diet cardiac Pt is waiting for inpatient rehab placement. <Glory Berman - Last Filed: 04/25/23 16:00> Pt seen and examined. I agree with the note by the INSULATION CUPOLA OPERATOR. Pt is waiting for inpatient rehab placement tomorrow <Dayton Mccann - Last Filed: 04/25/23 17:36>
[2023-04-25 16:56] VITALS: TEMP 97.3
[2023-04-25] MEDS ORDERED: ATORVASTATIN 80 MG TAB PO SCH (21:00)
[2023-04-25] MEDS ORDERED: NICOTINE 14 MG/PAT TD SCH (21:00)
[2023-04-25 21:50] VITALS: BP 152/90
[2023-04-26] MEDS ORDERED: ENOXAPARIN 40 MG/0.4 ML SQ SCH (09:00)
[2023-04-26] MEDS ORDERED: FOLIC ACID 1 MG TABLET PO SCH (09:00)
[2023-04-26] MEDS ORDERED: CLOPIDOGREL 75 MG TABLET PO SCH (09:00)
[2023-04-26] MEDS ORDERED: AMLODIPINE 10 MG TAB PO SCH (09:00)
[2023-04-26] MEDS ORDERED: ASPIRIN EC 81 MG TAB PO SCH (09:00)
== END 2023-04-26 01:16 | DRG 65 ==
LOC: ER 14:43 → ERHOLD 17:17 → 2ND 17:50
PROVIDERS: ADMIT Hospitalist; ATTEND Hospitalist
DX: I63.9 Cerebral infarction, unspecified (principal); G81.94 Hemiplegia, unspecified affecting left nondominant side; R47.81 Slurred speech; I10 Essential (primary) hypertension; E87.6 Hypokalemia; E78.5 Hyperlipidemia, unspecified; M79.606 Pain in leg, unspecified; F17.210 Nicotine dependence, cigarettes, uncomplicated; R47.1 Dysarthria and anarthria; R29.704 NIHSS score 4; R77.8 Other specified abnormalities of plasma proteins; Z79.02 Long term (current) use of antithrombotics/antiplatelets; Z79.82 Long term (current) use of aspirin; Z79.899 Other long term (current) drug therapy
CPT/HCPCS: 36415; 70450; 70496; 70498; 70551; 71045; 72220; 74230; 80048; 80061; 80076; 82565; 82947; 83735; 84132; 84484; 85025; 85610; 85730; 92526; 92610; 92611; 93005; 93306; 97110; 97112; 97116; 97161; 97165; 97530; 99285; J1650; J3480; J7030; J7040; J7050; Q9967

== ENCOUNTER 2023-04-26 01:00 | Inpatient (IN) | payer OTHER ==
[2023-04-26 02:18] VITALS: BMI 24.1
[2023-04-26] MEDS ORDERED: LORATADINE 10 MG TAB PO PRN (02:28)
[2023-04-26] MEDS ORDERED: MELATONIN 3 MG TABLET PO PRN (02:51)
[2023-04-26 03:54] LABS: Specific Gravity 1.018 (1.005-1.030); Urine Bilirubin NEGATIVE (Negative); Urine Blood 2+ (Negative); Urine Clarity Turbid (Clear); Urine Color Light-Yellow (Yellow); Urine Glucose NEGATIVE (Negative); Urine Protein NEGATIVE (Negative); Urine Urobilinogen Normal (Normal)
[2023-04-26 03:55] LABS: Urine Bacteria None Seen /HPF (<20); Urine Mucus Slight /HPF (None Seen)
[2023-04-26 04:22] LABS: Absolute Lymphocytes (CBC) 2.7 K/uL (0.7-4.9); Hematocrit 42.1 % (39.6-49.0); Lymphocytes % 20.5 % (15.3-44.8); MCV 96.8 fL (80-100); MPV 9.9 fL (7.6-11.3); Platelets 217 thou/uL (152-406); RBC Red Blood Cell Count 4.34 M/uL (4.33-5.43)
[2023-04-26 04:28] LABS: Albumin 3.5 g/dL (3.4-5.0); Bilirubin Total 0.7 mg/dL (0.2-1.0); Magnesium 2.5 mg/dL (1.6-2.4); Potassium 3.6 mEq/L (3.5-5.1); Protein, Total 7.3 g/dL (6.4-8.2)
[2023-04-26] MEDS ORDERED: AMLODIPINE 10 MG TAB PO SCH ×3 (08:00→20:00)
[2023-04-26] MEDS ORDERED: ASPIRIN 81 MG CHEWABLE TABLET PO SCH (08:00)
[2023-04-26] MEDS: DOCUSATE NA 100 MG CAP PO SCH ×2 (08:00→08:04)
[2023-04-26] MEDS: CLOPIDOGREL 75 MG TABLET PO SCH (08:04)
[2023-04-26] MEDS: NICOTINE 14 MG/PAT TD SCH (08:04)
[2023-04-26] MEDS: ENOXAPARIN 40 MG/0.4 ML SQ SCH (08:04)
[2023-04-26] MEDS: FOLIC ACID 1 MG TABLET PO SCH (08:05)
[2023-04-26] MEDS: FLUTICASONE 50MCG NASAL SPRAY NAS SCH (08:05)
[2023-04-26] MEDS ORDERED: DOCUSATE NA 100 MG CAP PO PRN (12:01)
[2023-04-26] MEDS: LIDOCAINE 4% PATCH TOP SCH (12:01)
[2023-04-26] MEDS: NYSTATIN PWDR 100000 UNIT/GM TOP SCH ×2 (12:02→21:01)
[2023-04-26] MEDS: ENSURE PUDDING 4 OZ CUP PO SCH ×2 (20:00)
[2023-04-26] MEDS: AMLODIPINE 5 MG TAB PO SCH (21:01)
[2023-04-26] MEDS: DOCUSATE NA/SENNA CONC 1 TAB PO SCH (21:02)
[2023-04-26] MEDS: ATORVASTATIN 80 MG TAB PO SCH (21:02)
[2023-04-27] MEDS: ACETAMINOPHEN 500 MG TAB PO PRN (02:21)
--- NOTE | 2023-04-27 03:52 | HP ---
Date of Admission: 04/26/2023 Time Of Service: 1 p.m. Chief Complaint: "I suffered a stroke and left-sided weakness." History Of Present Illness: Mr. Dow is a 73-year-old right-handed patient with hyperte nsion and dyslipidemia, who suffered a right basal ganglia stroke on April 15, 2023. He was at [facility] when he developed difficulty walking, trouble speaking with weakness on the left side. He was tobias ble to stand because of weakness and had significant left facial drooping. At [facility], e valuation identified a nonhemorrhagic right basal ganglia stroke extending superiorly along the right periventricular white matter, measuring 25 x 15 mm. The patient was evaluated, determined that he h ad significant dysphagia and was placed on aspiration precautions, to be further evaluated by potenti al modified barium swallow study. Also, elevated troponins were seen too, requiring rule out myocard ial infarction. He was treated with aspirin, Plavix, folic acid and had permissive hypertension for a while. After swallow evaluation was done, he was placed on a pureed diet with honey-thick liquids. He did have some chronic back pain superimposed on acute back pain, and it was managed as well. He had hypokalemia along with hemiparesis, elevated blood pressure, and depression. Evaluation by Phys ical and Occupational Therapy along with Speech Therapy determined that he required moderate to maxim um assistance for performing ordinary activities of daily living, for transferring, for ambulating, a nd performing cognitive functioning along with his chewing, eating, swallowing. As a result, he was determined to be a more appropriate candidate for inpatient rehabilitation, where his medical conditi on could to be addressed and he can have aggressive physical, occupational, and speech therapy. Past Medical History: Essential hypertension, dyslipidemia, chronic tobacco use. Social History: Smokes on a daily basis. Denies heavy alcohol use. May drink caffeinated beverages . No intravenous drugs. Family History: Noncontributory. Allergies: NO KNOWN DRUG ALLERGIES. Medications: Tylenol Extra Strength 500 mg every 4 hours as needed, Norvasc 5 mg twice daily, aspiri n 81 mg daily, Lipitor 80 mg at bedtime, Plavix 75 mg daily, Colace 100 mg twice daily, Lovenox 40 mg subcutaneously daily, Ensure Pudding 4 ounces twice daily, fluticasone 2 sprays daily, folic acid 1 mg daily, lidocaine patch apply topically daily as needed, Claritin 10 mg daily, melatonin 3 mg at be dtime, Mycostatin powder apply topically twice daily, Senokot-S 1 at bedtime. Past Surgical History: None. Review of Systems: Mr. Dow is resting in a chair beside bed. He is using the Gripper in the left hand and working in between therapy sessions to help him recover strength. His is at the bedside. Review of Systems: Denies any fevers, chills, nausea, vomiting. No significant myalgias, arthralgias, rash, headache, w eight changes, difficulty with swallowing, some mood issues, and depression. Physical Examination: Vital Signs: Blood pressure 118/68, pulse of 70, respiratory rate 16, temperature 97.3, oxygen satur ation 95%. General: Mr. Dow was sitting in a chair beside the bed. HEENT: He is normocephalic, atraumatic. Sclerae anicteric. Oropharynx moist. Neck: Supple. Chest: Clear. Heart: Regular. Extremities: Show no significant edema, cyanosis, or clubbing. Neurological: Communicates mostly in Romanian, but does understand some [place]. does understan d more [place]. Cranial nerves: Slight decrease of left nasolabial fold with fair excursion. Motor exam: In the left upper extremity is at least 3 against gravity lifting the arm at the proximal and distal end. Compactor Driver strength around 3. Left leg elevation and extension around 3 as well. Sensation: He does report hyperesthesia in the left upper extremity compared to the right side and stocking lo ss to light touch, temperature in the lower extremities with slightly less noted on the left compared to the right side. Coordination is slow, but intact in the upper and lower extremities. Reflexes a re depressed on the right and slightly increased in the left upper and lower extremities. He will be ambulated with a gait belt. Current Level Of Functioning: Setup assistance for eating, oral hygiene. He is independent for toil et hygiene. Moderate assistance for showering. Upper body dressing, setup assistance. Lower body d ressing, maximal assistance. Donning and doffing footwear, maximum assistance. Rolling right to lef t and left to right, maximal assistance. Moderate assistance for sitting on the side of the bed. Si t-to-stand, moderate assistance. Maximal to moderate assistance for chair to the bed transfer. Toil et transfer, maximum assistance. Ambulation: He did ambulate with a rolling walker. It requires mo d assist, did cover 250 feet. Assessment: Mr. Dow is a 73-year-old patient in the rehabilitation unit with impairment categor y 01 stroke. His impairment group code is 01.1, left body involvement, right brain. His etiologic d iagnosis is nonhemorrhagic stroke to right basal ganglia. Other comorbidities: Dysarthria, dyslipid emia, hypertension, hypokalemia, left hemiparesis, and pain. Plan: 1.He will have physical, occupational, and speech therapy 3.5 hours, 5 to 7 days. 2.Comorbid conditions including dyslipidemia, hypertension, hypokalemia, chronic pain, risk of deep vein thrombosis, insomnia, constipation. Will be addressed by continuing the current regimen of medi cations, including Norvasc, Lipitor, aspirin, Plavix, Colace, Lovenox. For nutrition, Ensure Enlive. For his tobacco dependency, actually will have a 14 mg daily transdermal patch. Senokot-S for cons tipation. Impact Of Comorbidities: His hypertension and tobacco dependency do not necessarily pose a significa nt threat due to the patient's ability to do well. Those will be mitigated. He does have a signific ant weakness to the left side, and he was fully functioning and independent prior to that. It may no t be possible quite returning to that while in hospital, in rehab for maybe 3 weeks, and will likely need ongoing physical therapy after he discharges. The goal will not be to be fully independent as t hat will be not necessarily achievable within a short time, but he may be able to reach that several weeks down the road. Rehab Assessment And Plan: Mr. Dow will have physical, occupational, speech therapy for 3.5 caitlyn rs, 5 to 7 days. He will improve his ability to transfer from bed to toilet to chair to modified ind ependence level, ambulate 250 feet with modified independence with a right nitin-walker up and down 10 steps with modified independence, with a wheelchair 250 feet with modified independence, perform all cognitive functioning with modified independence. Work to change his swallowing to a fully independ ent with thin liquids and no restrictions in terms of the texture and consistency of the food as he w orked very diligently with Speech Therapy. Mr. Dow and his have a good understanding of the process of inpatient rehabilitation and th e benefits of physical, occupational, and speech therapy. If need be, Infectious Disease Service yvette l be consulted as the potential for aspiration pneumonia is there, Hospitalist Service if these medic al conditions need to be more closely managed will be consulted, and Cardiology as needed as he had s ome elevated troponins. Given his complex medical condition and risk of further complications, rehab ilitation cannot be safely or effectively performed at the lower level of facility such as [facility]. Barriers To Discharge: Currently, his comorbids are not completely out of control. His vital signs indicate very good blood pressure control, but he did have systolics up to 150, diastolics at 90, and he will have adjustment of medications as appropriate. Length Of Stay: Expected about 2-1/2 to 3 weeks. Disposition: Home with . Prognosis: Good. Rehabilitation Goals: 1.Become independent with upper and lower body dressing, toileting, showering, donning and doffing s hoes. 2.Independently ambulate 250 feet with a rolling walker and a right nitin-walker. 3.Independently propel a wheelchair 250 feet. 4.Independently go up and down 15 steps with right-sided handrails and if possible both. 5.Independently perform swallowing, eating, chewing, and his cognitive functioning. The above goals were reviewed with Mr. Dow and his , and they are in agreement. By signing this document, I acknowledge I personally performed a full physical examination on Mr. Christ hayes no later than 24 hours after his admission to the inpatient rehabilitation facility and determi lesley that he is able to tolerate the above course of treatment at an intensive level for a reasonable period of time. A detailed individualized plan of care for him will be completed by hospital day 4 b ased on the preadmission screen, history and physical, and therapy evaluations. JANAE/CRISTOFER Voice ID: [id number]
[2023-04-27] MEDS: NICOTINE 14 MG/PAT TD SCH (07:45)
[2023-04-27] MEDS: ENOXAPARIN 40 MG/0.4 ML SQ SCH (07:45)
[2023-04-27] MEDS: FOLIC ACID 1 MG TABLET PO SCH (07:45)
[2023-04-27] MEDS: FLUTICASONE 50MCG NASAL SPRAY NAS SCH (07:45)
[2023-04-27] MEDS: CLOPIDOGREL 75 MG TABLET PO SCH (07:45)
[2023-04-27 07:46] LABS: Absolute Lymphocytes (CBC) 3.1 K/uL (0.7-4.9); Lymphocytes % 26.2 % (15.3-44.8); MCV 97.4 fL (80-100); MPV 9.2 fL (7.6-11.3); Platelets 240 thou/uL (152-406); RBC Red Blood Cell Count 4.31 M/uL (4.33-5.43)
[2023-04-27] MEDS: LIDOCAINE 4% PATCH TOP SCH (07:46)
[2023-04-27] MEDS: ASPIRIN 81 MG CHEWABLE TABLET PO SCH (07:46)
[2023-04-27] MEDS: ENSURE PUDDING 4 OZ CUP PO SCH (08:00)
[2023-04-27] MEDS: NYSTATIN PWDR 100000 UNIT/GM TOP SCH ×2 (08:00→20:57)
[2023-04-27] MEDS: AMLODIPINE 5 MG TAB PO SCH ×2 (08:50→20:57)
--- NOTE | 2023-04-27 11:08 | RAD REPORT ---
EXAM DESCRIPTION: RAD - Hip Right 2 View - 04/27/2023 10:39 am CLINICAL HISTORY: pain COMPARISON: Hip Right 1 View dated 04/24/2023 TECHNIQUE: Right hip, AP and frog-leg views. FINDINGS: There is no fracture or dislocation. Stable mild right hip degenerative changes. No acute or destructive bony process seen. IMPRESSION: No acute findings. Stable mild degenerative changes of the right hip.
[2023-04-27] MEDS: DOCUSATE NA/SENNA CONC 1 TAB PO SCH (20:57)
[2023-04-27] MEDS: ENSURE ENLIVE 237 ML CAN PO SCH (20:57)
[2023-04-27] MEDS: ATORVASTATIN 80 MG TAB PO SCH (20:57)
[2023-04-28] MEDS: ENOXAPARIN 40 MG/0.4 ML SQ SCH (08:13)
[2023-04-28] MEDS: ASPIRIN 81 MG CHEWABLE TABLET PO SCH (08:15)
[2023-04-28] MEDS: NICOTINE 14 MG/PAT TD SCH (08:15)
[2023-04-28] MEDS: LIDOCAINE 4% PATCH TOP SCH (08:16)
[2023-04-28] MEDS: FLUTICASONE 50MCG NASAL SPRAY NAS SCH (08:16)
[2023-04-28] MEDS: NYSTATIN PWDR 100000 UNIT/GM TOP SCH ×2 (08:16→20:47)
[2023-04-28] MEDS: CLOPIDOGREL 75 MG TABLET PO SCH (08:16)
[2023-04-28] MEDS: FOLIC ACID 1 MG TABLET PO SCH (08:16)
[2023-04-28] MEDS: ENSURE ENLIVE 237 ML CAN PO SCH ×2 (08:16→20:47)
[2023-04-28] MEDS: AMLODIPINE 5 MG TAB PO SCH ×2 (08:17→20:47)
[2023-04-28] MEDS: DOCUSATE NA 100 MG CAP PO SCH ×2 (08:28→20:00)
[2023-04-28] MEDS ORDERED: BISACODYL 10 MG RECTAL SUPP PR PRN (14:05)
[2023-04-28] MEDS: DOCUSATE NA/SENNA CONC 1 TAB PO SCH (20:47)
[2023-04-28] MEDS: ATORVASTATIN 80 MG TAB PO SCH (20:47)
[2023-04-29] MEDS: NICOTINE 14 MG/PAT TD SCH (08:04)
[2023-04-29] MEDS: LIDOCAINE 4% PATCH TOP SCH (08:04)
[2023-04-29] MEDS: ENOXAPARIN 40 MG/0.4 ML SQ SCH (08:05)
[2023-04-29] MEDS: AMLODIPINE 5 MG TAB PO SCH ×2 (08:05→21:20)
[2023-04-29] MEDS: FOLIC ACID 1 MG TABLET PO SCH (08:06)
[2023-04-29] MEDS: ENSURE ENLIVE 237 ML CAN PO SCH ×2 (08:06→21:48)
[2023-04-29] MEDS: DOCUSATE NA 100 MG CAP PO SCH ×2 (08:07→21:20)
[2023-04-29] MEDS: CLOPIDOGREL 75 MG TABLET PO SCH (08:07)
[2023-04-29] MEDS: FLUTICASONE 50MCG NASAL SPRAY NAS SCH (08:07)
[2023-04-29] MEDS: ASPIRIN 81 MG CHEWABLE TABLET PO SCH (08:07)
[2023-04-29] MEDS: NYSTATIN PWDR 100000 UNIT/GM TOP SCH ×2 (08:08→21:48)
[2023-04-29] MEDS: DOCUSATE NA/SENNA CONC 1 TAB PO SCH ×2 (08:41→21:20)
[2023-04-29] MEDS: ATORVASTATIN 80 MG TAB PO SCH (21:20)
--- NOTE | 2023-04-29 22:58 | PN ---
Date of Progress Note: 04/29/2023 Time Of Service: 1:35 p.m. Subjective: Mr. Dow is sitting in his bed with therapist at the bedside. He is demonstrating h is regained use of the left hand, and ability of closing and opening of the hand and lifting the hand up above his head, and while doing so, he burst into tears of ghulam a as he is now able to move that h and significantly more as he is regaining strength from his stroke, which affected the left upper and lower extremity with weakness and numbness. Objective: He has no fevers, chills, nausea, vomiting, myalgias, arthralgias, rash, headache, weight change. No psychiatric issues. No active genitourinary or gastrointestinal issues. Laboratory Studies: White blood cell count is 12.0, neutrophils normal at 58.1, hemoglobin 14.3, falguni telets 240. In the night, his sodium was 139, potassium 4.0, chloride 105, BUN 14, creatinine 0.79, calcium 9.7, glucose 104, prealbumin 18, albumin 3.5. X-ray Imaging: There was a hip x-ray done on the . The study was of the right hip, anterior-post erior and frogleg views showed stable mild degenerative changes in the right hip. Medications: Tylenol 500 mg every 4 hours as needed, Norvasc 5 mg twice daily, aspirin 81 mg daily, Lipitor 80 mg at bedtime, Plavix 75 mg daily, Colace 100 mg twice daily, Lovenox 40 mg subcutaneously daily, Flonase spray 2 sprays per nostril daily, folic acid 1 mg daily, lidocaine patch apply topica lly daily as needed, Claritin 10 mg daily, melatonin 3 mg at bedtime, nicotine patch 14 mg daily, Ens ure Enlive 237 mL twice daily, nystatin powder apply topically twice daily, Senokot-S 2 twice daily. Progress made with physical and occupational therapy. Today, he is able to ambulate with physical th erapist 250 feet with a rolling walker, did need minimum to moderate assistance. He completed additi onal 250 feet with moderate assistance in the afternoon. With his occupational therapy, transferring off and on the toilet. With his weightbearing status as tolerated is contact guard assistance. Yinka leting minimum assistance, bathing minimum assistance, supervision for upper body dressing. With his speech therapy, completed oral motor exercises 10 times each of 15 different exercises to strengthen . He consumed 50% of meals. No overt signs of aspiration. Assessment: Mr. Dow is a 73-year-old patient at the rehabilitation unit with left body involvem ent stroke. The stroke affected his right basal ganglia on April 15. He is recovering very wel l with his left-sided weakness, incoordination, and difficulty with articulation and speech. He has comorbid hypertension, hypokalemia, pain not well managed, dyslipidemia as well, tobacco dependency, malnutrition with hypertension. Plan: 1.Continue with physical, occupational, and speech therapy for 3.5 hours, 5 of 7 days. 2.Continue with nicotine patch for tobacco dependency. 3.Continue with Senokot-S for constipation. 4.Continue Ensure Enlive for malnutrition. 5.Continue with melatonin for insomnia. Claritin for his seasonal allergies. Flonase as well along with Claritin for seasonal allergies. Lovenox 40 mg subcutaneously daily for DVT prophylaxis. Plav ix and aspirin for stroke risk reduction. Lipitor for dyslipidemia. Norvasc for hypertension. Comorbidities That Continue To Impact Rehabilitation: At this point, his multiple comorbidities are not negatively impacting his rehabilitation. He does have nicotine patch and does not have any cravi ngs for smoking at this point. He is very happy as he is regaining therapy and was crying earlier wi th happiness as he regains function with the left hand. LB/MODL Voice ID: [id number] Report ID: [id number]
[2023-04-30] MEDS: ENOXAPARIN 40 MG/0.4 ML SQ SCH (07:16)
[2023-04-30] MEDS: NICOTINE 14 MG/PAT TD SCH (07:29)
[2023-04-30] MEDS: LIDOCAINE 4% PATCH TOP SCH (07:29)
[2023-04-30] MEDS: FOLIC ACID 1 MG TABLET PO SCH (07:30)
[2023-04-30] MEDS: ASPIRIN 81 MG CHEWABLE TABLET PO SCH (07:30)
[2023-04-30] MEDS: DOCUSATE NA/SENNA CONC 1 TAB PO SCH ×3 (07:30→19:13)
[2023-04-30] MEDS: AMLODIPINE 5 MG TAB PO SCH ×2 (07:30→19:12)
[2023-04-30] MEDS: CLOPIDOGREL 75 MG TABLET PO SCH (07:30)
[2023-04-30] MEDS: DOCUSATE NA 100 MG CAP PO SCH ×2 (07:41→19:13)
[2023-04-30] MEDS: ENSURE ENLIVE 237 ML CAN PO SCH ×2 (08:51→19:13)
[2023-04-30] MEDS: NYSTATIN PWDR 100000 UNIT/GM TOP SCH ×2 (08:51→19:13)
[2023-04-30] MEDS: FLUTICASONE 50MCG NASAL SPRAY NAS SCH (08:52)
[2023-04-30] MEDS: ACETAMINOPHEN 500 MG TAB PO PRN (09:01)
[2023-04-30] MEDS: ATORVASTATIN 80 MG TAB PO SCH (19:12)
--- NOTE | 2023-04-30 22:11 | PN ---
Date of Progress Note: 04/30/2023 Time Of Service: 1:35 p.m. Subjective: Mr. Dow is in his room, working with Speech Pathology. He is very happy with his r egain of functioning of the left upper and lower extremity. He is actually crying several times as h e is able to open and close the left hand and reach above his head. Family at the bedside also notes he seems to be more emotional than usual. Review of Systems: No fevers, chills, nausea, vomiting, myalgias, arthralgias, headache, weight change. He has difficul t time his ability to controlling his crying, although not necessarily at this point want to show suc h emotion. Objective: Vital Signs: Blood pressure 132/72, pulse 66, respiratory rate 18, temperature 97.4, oxy gen saturation 99%. Extremities: Mr. Dow has at least 4/5 strength in the left upper and lower extremity now and steiner s an improving sensation and coordination and otherwise his examination shows no changes compared to yesterday. Laboratory Studies: No new laboratory studies. X-ray Imaging: No new x-rays or imaging studies. Medications: Have been reviewed and remained unchanged. Progress Made With Physical And Occupational Therapy: Today, he completed multiple qci-qe-uddoe covington sfers with supervision. Supine to sit transfers, scooting in all directions and in the wheelchair wi th contact guard assistance and min assist. He also ambulated 250 feet with minimum assistance and p ropelled the wheelchair 250 feet with minimum assistance. Speech Therapy; he did trial thin liquids, tolerated thin liquids with chin tuck and a turn to the left. No overt signs of aspiration found. He drank about 8 ounces of liquid in a cup. His diet has been upgraded to thin liquids. With occupa tional therapy, contact guard for toileting, hygiene, supervision for footwear. Assessment And Plan: Mr. Dow is a 73-year-old patient in the rehabilitation unit with a right b jazmine ganglia stroke affecting the left body from which he is recovering well. He still has incoordin ation, kpuh-ik-vlavnfem weakness, difficulty with swallowing and articulation. He does speak mostly in Peruvian. He has comorbid hypertension, hypokalemia, dyslipidemia, tobacco dependency, malnutritio n. Plan: 1.Continue with physical, occupational, and speech therapy for 3.5 hours, 5 of 7 days. 2.Senokot for constipation. 3.Ensure for malnutrition. 4.Nicotine patch for tobacco dependency. 5.Melatonin for insomnia. 6.Claritin for seasonal allergies. Flonase as well as Claritin will continue for that. 7.Lovenox for DVT prophylaxis. 8.Plavix and aspirin for stroke risk reduction. 9.Lipitor for dyslipidemia and Norvasc for hypertension. Comorbidities That Continue To Impact His Rehabilitation: At this point, while he does have tobacco dependency, the nicotine patch is working well. He made no request to go smoking. 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 Nathan padgett, at this point, we will keep observing, see how he does and if it interferes his ability to carry out any activities in terms of his therapy or just his ordinary day, may consider Nuedexta for treat ment of his pseudobulbar affect symptoms. JANAE/CRISTOFER Voice ID: [id number] Report ID: [id number]
[2023-04-30] MEDS ORDERED: DOCUSATE NA/SENNA CONC 1 TAB PO PRN (23:00)
[2023-05-01] MEDS: AMLODIPINE 5 MG TAB PO SCH ×2 (07:25→20:46)
[2023-05-01] MEDS: LIDOCAINE 4% PATCH TOP SCH (07:25)
[2023-05-01] MEDS: CLOPIDOGREL 75 MG TABLET PO SCH (07:25)
[2023-05-01] MEDS: NICOTINE 14 MG/PAT TD SCH (07:25)
[2023-05-01] MEDS: FOLIC ACID 1 MG TABLET PO SCH (07:25)
[2023-05-01] MEDS: DOCUSATE NA 100 MG CAP PO SCH ×2 (07:26→20:00)
[2023-05-01] MEDS: ASPIRIN 81 MG CHEWABLE TABLET PO SCH (07:26)
[2023-05-01] MEDS: NYSTATIN PWDR 100000 UNIT/GM TOP SCH ×2 (07:26→20:46)
[2023-05-01] MEDS: FLUTICASONE 50MCG NASAL SPRAY NAS SCH (07:26)
[2023-05-01] MEDS: ENOXAPARIN 40 MG/0.4 ML SQ SCH (07:28)
[2023-05-01] MEDS: ENSURE ENLIVE 237 ML CAN PO SCH ×2 (07:28→20:46)
[2023-05-01] MEDS: ACETAMINOPHEN 500 MG TAB PO PRN (07:44)
[2023-05-01] MEDS: ATORVASTATIN 80 MG TAB PO SCH (20:46)
[2023-05-01] MEDS: MELATONIN 3 MG TABLET PO SCH (20:46)
[2023-05-02] MEDS: FOLIC ACID 1 MG TABLET PO SCH (07:17)
[2023-05-02] MEDS: NICOTINE 14 MG/PAT TD SCH (07:17)
[2023-05-02] MEDS: ASPIRIN 81 MG CHEWABLE TABLET PO SCH (07:17)
[2023-05-02] MEDS: LIDOCAINE 4% PATCH TOP SCH (07:18)
[2023-05-02] MEDS: AMLODIPINE 5 MG TAB PO SCH ×2 (07:18→20:21)
[2023-05-02] MEDS: NYSTATIN PWDR 100000 UNIT/GM TOP SCH ×2 (07:18→20:21)
[2023-05-02] MEDS: FLUTICASONE 50MCG NASAL SPRAY NAS SCH (07:18)
[2023-05-02] MEDS: ENSURE ENLIVE 237 ML CAN PO SCH ×2 (07:21→20:21)
[2023-05-02] MEDS: APIXABAN 2.5 MG TABLET PO SCH ×2 (07:42→20:21)
[2023-05-02] MEDS: DOCUSATE NA/SENNA CONC 1 TAB PO SCH ×2 (08:00→08:14)
[2023-05-02 08:17] LABS: Hematocrit 34.3 % (39.6-49.0); Lymphocytes % 22.6 % (15.3-44.8); MCV 94.6 fL (80-100); MPV 8.9 fL (7.6-11.3); Platelets 303 thou/uL (152-406); RBC Red Blood Cell Count 3.62 M/uL (4.33-5.43)
[2023-05-02 08:37] LABS: Albumin 3.4 g/dL (3.4-5.0); Magnesium 2.3 mg/dL (1.6-2.4); Potassium 3.7 mEq/L (3.5-5.1)
[2023-05-02 10:10] LABS: Prealbumin 15.6 mg/dL (20-40)
[2023-05-02] MEDS: ATORVASTATIN 80 MG TAB PO SCH (20:20)
[2023-05-02] MEDS: MELATONIN 3 MG TABLET PO SCH (20:21)
--- NOTE | 2023-05-02 23:27 | PN ---
Date of Progress Note: 05/02/2023 Time Of Service: 1:30 p.m. Subjective: Mr. Dow is in his room. In between therapy sessions, he is showing how his left steiner nd and arm is recovering by it moving up and down. While in the room again, yesterday, he did have s ome crying episodes likely related to pseudobulbar affect following stroke. There was discussion abo ut where the patient will go after he leaves. He is happy to go home. There was a possibility of hi m going to [facility]; however, he is doing well and his family will be involved in training and 3 of his sons will rotate help every day as they would take shifts. In addition, other family membe rs will be helpful, so he is happy about going home. Review of Systems: No fevers, chills, nausea, vomiting, myalgias, arthralgias. No rash. No other issues besides the ps eudobulbar affect. Physical Examination: Vital Signs: Blood pressure 124/66, pulse 65, respiratory rate 16, temperature 97.1, oxygen saturati on 97%. General: Mr. Dow is lying in bed and moving the arms up and down. He is again emotional and steiner s some bouts of crying. HEENT: Otherwise, he is normocephalic, atraumatic. Sclerae anicteric. Oropharynx moist. Neck: Supple. Chest: Clear. Heart: Regular. Laboratory Studies: White blood cell count 8.8, hemoglobin 12.2, platelets 303. Sodium 136, potassi um 3.7, chloride 103, carbon dioxide 29, BUN 12, creatinine 0.74, glucose 120. Calcium 9.3, magnesiu m 2.3. Prealbumin 15.6, albumin 3.4. X-ray/imaging: No new x-rays or imaging. Medications: His medications have been reviewed and remained unchanged. Progress Made With Physical And Occupational Therapy: Today, with physical therapy, he completed sta tic and dynamic standing balance training in parallel bars with bilateral upper extremities. He also ambulated 500 feet with minimum assistance using a rolling walker. He mobilized a wheelchair 250 fe et with contact guard assistance to minimum assistance. With occupational therapy, self-propelled fr om the room to the gym with verbal cues. With speech, he was upgraded from a pureed and nectar thick liquids to regular diet with thin liquids. He did complete oral motor exercises with minimum visual cues. He is following compensatory strategies with minimal cues. Overall, he is making excellent progress with his physical, occupational, and speech therapy. He donnie uld be able to be safe at home with the help of family and he will continue physical, occupational, a nd speech therapy at home. Assessment: Mr. Dow is a 73-year-old patient in rehabilitation with a right basal ganglia strok e affecting his left body and he is recovering well in terms of left-sided strength returning to the upper extremity and lower extremity. He still has moderate weakness. As noted, he is mostly British -speaking, but can communicate somewhat in Tajik. He has hypertension, hypokalemia, dyslipidemia, tobacco dependency, malnutrition. Plan: 1.Continue with physical, occupational, and speech therapy for 3.5 hours, 5 to 7 days. 2.Multiple comorbid condition medications are continued, which will include nicotine, melatonin, Cla ritin, Lovenox, Plavix, Lipitor, Ensure, and Senokot. Comorbidities That Continue To Impact Rehabilitation: Currently, the pseudobulbar affect, likely rel ated to the stroke is causing him to cry and making it difficult for him to stop crying. The possibi lity of Nuedexta was considered, but apparently the medication may likely be out of the patient's ability to pay as it is around $1200 per month supply. JANAE/CRISTOFER Voice ID: [id number] Report ID: [id number]
[2023-05-03] MEDS: ENSURE ENLIVE 237 ML CAN PO SCH ×3 (07:57→20:06)
[2023-05-03] MEDS: NICOTINE 14 MG/PAT TD SCH (07:57)
[2023-05-03] MEDS: AMLODIPINE 5 MG TAB PO SCH ×2 (07:58→20:00)
[2023-05-03] MEDS: LIDOCAINE 4% PATCH TOP SCH (07:58)
[2023-05-03] MEDS: DOCUSATE NA/SENNA CONC 1 TAB PO SCH (07:59)
[2023-05-03] MEDS: FOLIC ACID 1 MG TABLET PO SCH (07:59)
[2023-05-03] MEDS: APIXABAN 2.5 MG TABLET PO SCH ×2 (07:59→20:05)
[2023-05-03] MEDS: ASPIRIN 81 MG CHEWABLE TABLET PO SCH (08:00)
[2023-05-03] MEDS: NYSTATIN PWDR 100000 UNIT/GM TOP SCH ×2 (08:00→20:05)
[2023-05-03] MEDS: FLUTICASONE 50MCG NASAL SPRAY NAS SCH (08:00)
--- NOTE | 2023-05-03 13:22 | P.RH.PN ---
Estimated Length of Stay: 13 Expected Discharge Date: 05/08/23 Discharge Disposition Plan: Home Family Support: Yes Residential Goal: Mobility, Transfers, Self Care Vital Signs: Last Vital Signs Temp 96.7 F L 05/03/23 07:31 Pulse 56 05/03/23 07:58 Resp 14 05/03/23 07:31 BP 131/60 05/03/23 07:58 Pulse Ox 97 05/03/23 07:31 Laboratory: Laboratory Last Values WBC 8.80 thou/uL (4.3-10.9) 05/02/23 07:58 RBC 3.62 M/uL (4.33-5.43) L 05/02/23 07:58 Hgb 12.2 g/dL (13.6-17.9) L 05/02/23 07:58 Hct 34.3 % (39.6-49.0) L 05/02/23 07:58 MCV 94.6 fL (80-100) 05/02/23 07:58 MCH 33.8 pg (27.0-35.0) 05/02/23 07:58 MCHC 35.7 g/dL (32.0-36.0) 05/02/23 07:58 RDW 12.8 % (12.1-15.2) 05/02/23 07:58 Plt Count 303 thou/uL (152-406) 05/02/23 07:58 MPV 8.9 fL (7.6-11.3) 05/02/23 07:58 Neutrophils % 63.6 % (41.7-73.7) 05/02/23 07:58 Lymphocytes % 22.6 % (15.3-44.8) 05/02/23 07:58 Monocytes % 11.6 % (3.3-12.3) 05/02/23 07:58 Eosinophils % 1.4 % (0-4.4) 05/02/23 07:58 Basophils % 0.8 % (0-1.3) 05/02/23 07:58 Absolute Neutrophils 5.6 K/uL (1.8-8.0) 05/02/23 07:58 Absolute Lymphocytes 2.0 K/uL (0.7-4.9) 05/02/23 07:58 Absolute Monocytes 1.0 K/uL (0.1-1.3) 05/02/23 07:58 Absolute Eosinophils 0.1 K/uL (0-0.5) 05/02/23 07:58 Absolute Basophils 0.1 K/uL (0-0.5) 05/02/23 07:58 Sodium 136 mEq/L (136-145) 05/02/23 07:58 Potassium 3.7 mEq/L (3.5-5.1) 05/02/23 07:58 Chloride 103 mEq/L (98-107) 05/02/23 07:58 Carbon Dioxide 29 mEq/L (21-32) 05/02/23 07:58 Anion Gap 7.7 mEq/L (5.0-15.0) 05/02/23 07:58 BUN 12 mg/dL (7-18) 05/02/23 07:58 Creatinine 0.74 mg/dL (0.70-1.30) 05/02/23 07:58 Est GFR (CKD-EPI) 97 ml/min (=/>90) 05/02/23 07:58 Glucose 120 mg/dL (74-106) H 05/02/23 07:58 Calcium 9.3 mg/dL (8.5-10.1) 05/02/23 07:58 Magnesium 2.3 mg/dL (1.6-2.4) 05/02/23 07:58 Total Bilirubin 0.7 mg/dL (0.2-1.0) 04/26/23 03:18 AST 17 U/L (15-37) 04/26/23 03:18 ALT 50 U/L (16-61) 04/26/23 03:18 Alkaline Phosphatase 66 U/L (45-117) 04/26/23 03:18 Serum Total Protein 7.3 g/dL (6.4-8.2) 04/26/23 03:18 Albumin 3.4 g/dL (3.4-5.0) 05/02/23 07:58 Globulin 3.8 g/dL (2.3-3.5) H 04/26/23 03:18 Albumin/Globulin Ratio 0.9 (1.1-1.8) L 04/26/23 03:18 Prealbumin 15.6 mg/dL (20-40) L 05/02/23 07:58 Urine Color Light-yellow (Yellow) 04/26/23 03:05 Urine Clarity Turbid (Clear) H 04/26/23 03:05 Urine pH 6.0 (5.0-7.0) 04/26/23 03:05 Ur Specific Dyer 1.018 (1.005-1.030) 04/26/23 03:05 Glucose (UA)(Auto) Negative (Negative) 04/26/23 03:05 Urine Ketones Trace (Negative) H 04/26/23 03:05 Urine Blood 2+ (Negative) H 04/26/23 03:05 Urine Nitrite Negative (Negative) 04/26/23 03:05 Urine Bilirubin Negative (Negative) 04/26/23 03:05 Urine Urobilinogen Normal (Normal) 04/26/23 03:05 Ur Leukocyte Esterase Negative Orlin/uL (Negative) 04/26/23 03:05 Urine RBC 11-20 /HPF (None Seen) H 04/26/23 03:05 Urine WBC <5 /HPF (<5) 04/26/23 03:05 Ur Squamous Epith Cells <5 /HPF (None Seen) 04/26/23 03:05 Urine Bacteria None seen /HPF (<20) 04/26/23 03:05 Urine Mucus Slight /HPF (None Seen) 04/26/23 03:05 Urine Yeast (Budding) Trace /HPF (None Seen) H 04/26/23 03:05 Urine Culture Reflexed Not needed 04/26/23 03:05 Urine Total Protein Negative (Negative) 04/26/23 03:05 SARS-CoV-2 Rap RNA(RT-PCR) Negative (NEGATIVE) 04/26/23 03:08 Weight: 145 lb 8 oz Wound Present: No Closed Surgical Incision Present: No Negative Pressure Wound Therapy Present: No Physician Update: Improving left upper and lower extremity strenth and coordination. He has more symptoms consistent with pseudobulbar affect. Will do a PBA scale and will consider Nuedexta. He wants to go home. Physical therapist suggest he will require SNF. Met 4/4 speech therapy goals. Summary: Patient's care plan and [facility]ci goals have been reviewed and revised as necessary. Please see the Rehabilitation Signature page for all necessary signatures.
[2023-05-03] MEDS: ATORVASTATIN 80 MG TAB PO SCH (20:08)
[2023-05-03] MEDS: MELATONIN 3 MG TABLET PO SCH (20:08)
[2023-05-04] MEDS: NYSTATIN PWDR 100000 UNIT/GM TOP SCH ×2 (07:30→19:51)
[2023-05-04] MEDS: LIDOCAINE 4% PATCH TOP SCH (07:30)
[2023-05-04] MEDS: NICOTINE 14 MG/PAT TD SCH (07:30)
[2023-05-04] MEDS: FLUTICASONE 50MCG NASAL SPRAY NAS SCH (07:30)
[2023-05-04] MEDS: ENSURE ENLIVE 237 ML CAN PO SCH ×3 (07:30→19:52)
[2023-05-04] MEDS: FOLIC ACID 1 MG TABLET PO SCH (07:32)
[2023-05-04] MEDS: ASPIRIN 81 MG CHEWABLE TABLET PO SCH (07:32)
[2023-05-04] MEDS: DOCUSATE NA/SENNA CONC 1 TAB PO SCH (07:32)
[2023-05-04] MEDS: AMLODIPINE 5 MG TAB PO SCH ×2 (07:32→19:51)
[2023-05-04] MEDS: APIXABAN 2.5 MG TABLET PO SCH ×2 (07:33→19:51)
[2023-05-04] MEDS ORDERED: POLYETHYL GLY 3350 17 GM/DOSE PO PRN (13:38)
[2023-05-04] MEDS: ATORVASTATIN 80 MG TAB PO SCH (19:53)
[2023-05-04] MEDS: MELATONIN 3 MG TABLET PO SCH (19:54)
[2023-05-04] MEDS ORDERED: DOCUSATE NA 100 MG CAP PO SCH (20:00)
[2023-05-05] MEDS: ENSURE ENLIVE 237 ML CAN PO SCH ×3 (07:52→20:15)
[2023-05-05] MEDS: AMLODIPINE 5 MG TAB PO SCH ×2 (07:53→20:14)
[2023-05-05] MEDS: NICOTINE 14 MG/PAT TD SCH (07:54)
[2023-05-05] MEDS: APIXABAN 2.5 MG TABLET PO SCH ×2 (07:55→20:14)
[2023-05-05] MEDS: DOCUSATE NA/SENNA CONC 1 TAB PO SCH (07:55)
[2023-05-05] MEDS: FOLIC ACID 1 MG TABLET PO SCH (07:55)
[2023-05-05] MEDS: ASPIRIN 81 MG CHEWABLE TABLET PO SCH (07:57)
[2023-05-05] MEDS: FLUTICASONE 50MCG NASAL SPRAY NAS SCH (07:58)
[2023-05-05] MEDS: LIDOCAINE 4% PATCH TOP SCH (07:58)
[2023-05-05] MEDS: NYSTATIN PWDR 100000 UNIT/GM TOP SCH ×2 (07:58→20:15)
[2023-05-05] MEDS: ATORVASTATIN 80 MG TAB PO SCH (20:14)
[2023-05-05] MEDS: MELATONIN 3 MG TABLET PO SCH (20:14)
[2023-05-06] MEDS: ACETAMINOPHEN 500 MG TAB PO PRN (05:39)
[2023-05-06] MEDS: DOCUSATE NA/SENNA CONC 1 TAB PO SCH (07:30)
[2023-05-06] MEDS: ASPIRIN 81 MG CHEWABLE TABLET PO SCH (07:30)
[2023-05-06] MEDS: FOLIC ACID 1 MG TABLET PO SCH (07:30)
[2023-05-06] MEDS: LIDOCAINE 4% PATCH TOP SCH (07:30)
[2023-05-06] MEDS: APIXABAN 2.5 MG TABLET PO SCH ×2 (07:31→19:39)
[2023-05-06] MEDS: AMLODIPINE 5 MG TAB PO SCH ×2 (07:31→19:39)
[2023-05-06] MEDS: FLUTICASONE 50MCG NASAL SPRAY NAS SCH (07:32)
[2023-05-06] MEDS: NICOTINE 14 MG/PAT TD SCH (07:33)
[2023-05-06] MEDS: NYSTATIN PWDR 100000 UNIT/GM TOP SCH ×2 (07:33→19:39)
[2023-05-06] MEDS: ENSURE ENLIVE 237 ML CAN PO SCH ×2 (07:34→14:00)
[2023-05-06] MEDS ORDERED: DOCUSATE NA/SENNA CONC 1 TAB PO PRN (17:00)
[2023-05-06] MEDS ORDERED: LOPERAMIDE HCL 2 MG CAPSULE PO STA (17:20)
[2023-05-06] MEDS: ATORVASTATIN 80 MG TAB PO SCH (19:40)
[2023-05-06] MEDS: MELATONIN 3 MG TABLET PO SCH (19:41)
--- NOTE | 2023-05-06 20:05 | PN ---
Date of Progress Note: 05/06/2023 Time Of Service: 1:05 p.m. Subjective: Mr. Dow is in his room sitting in his chair beside bed and seemingly more engaged, happier today, is smiling, and was able to show what he can do with the left arm which has improved m ovement, improved dexterity to do pincer moves with the thumb to each finger. He has no new complain ts. Review of Systems: No fevers, chills, nausea, vomiting. No myalgias, arthralgias, rash, headache, weight change. No ac tive psychiatric issues. Physical Examination: Vital Signs: Blood pressure 129/67, pulse 52, respiratory rate of 16, temperature 97.2, oxygen satur ation 100% on room air. Pain level between 0 and 4. Neurological Examination: He has around 4/5 strength proximally and distally in the left upper extre mity around actually 3 to 4 distally. Sensation intact in the lower extremity around 4 to 5 proximal ly distally and his sensation again intact in the upper and lower extremity on the left. Otherwise g ood air movement. Abdomen: Soft. Extremities: No clubbing, cyanosis, or edema. Laboratory Studies: No new laboratory studies. X-ray/imaging: No new x-rays and imaging. Medications: Medications have been reviewed and remain unchanged. Progress Made With Physical And Occupational Along With Speech Therapy: Today, he was able to assimi late multiple car transfers with standby assistance for safety. Also mobilized in a wheelchair 500 f eet with modified independence. He was able to lock and unlock wheelchair without cuing and did that very well. With his occupational therapy, he did showering with contact guard assistance. He was a ble to wash his buttocks leaning over in a seated position. He did upper body dressing, minimum assi stance, moderate assist for lower body dressing, and mod for his grooming. For speech therapy, he di d demonstrate improved lingual sweep for oral cleaning with regular textures. Oral motor exercises, completed 15 repetitions with minimum cuing, demonstrated ability to consume 100% of regular diet and diet tolerated with no signs of aspiration. He is actually making good progress with physical, occupational, speech therapy, and the patient will however benefit from ongoing therapy as he is likely to fall because of his balance issues or he may fatigue in the day, especially if he has to do all his activities on his own and it is recommended t hat he be able to continue with snf to have more time to recover improved. Assessment: Mr. Dow is a 73-year-old patient with a stroke involving the right basal ganglia pr oducing left upper and lower extremity weakness and numbness with dysarthria and dysphagia. He has h ypertension, hypokalemia, dyslipidemia, tobacco dependency, malnutrition, depression, and pseudobulba r affect. However, today it is noted he had no episodes of crying while he was in his room during th e visit. Plan: 1.Physical, occupational, and speech therapy for 3.5 hours, 5 out of 7 days. 2.His comorbid conditions managed by continuing his medications have been reviewed and listed. He w ill continue with Senokot S, Ensure, Lipitor, Plavix, Lovenox, melatonin, nicotine patch, and Clariti n. Comorbidities That Continue To Impact Rehabilitation: His pseudobulbar affect today appears somewhat better, although that condition fluctuate, may still consider Nuedexta, which can be very expensive. There is paperwork being filled to see if the patient may qualify for assistance for his medication and he again may be discharged to snf. JANAE/CRISTOFER Voice ID: [id number] Report ID: [id number]
[2023-05-07] MEDS: ENSURE ENLIVE 237 ML CAN PO SCH ×2 (07:19→19:38)
[2023-05-07] MEDS: LIDOCAINE 4% PATCH TOP SCH (07:19)
[2023-05-07] MEDS: NICOTINE 14 MG/PAT TD SCH (07:19)
[2023-05-07] MEDS: AMLODIPINE 5 MG TAB PO SCH ×2 (07:20→19:37)
[2023-05-07] MEDS: FOLIC ACID 1 MG TABLET PO SCH (07:21)
[2023-05-07] MEDS: APIXABAN 2.5 MG TABLET PO SCH ×2 (07:21→19:37)
[2023-05-07] MEDS: NYSTATIN PWDR 100000 UNIT/GM TOP SCH ×2 (07:21→19:36)
[2023-05-07] MEDS: ASPIRIN 81 MG CHEWABLE TABLET PO SCH (07:21)
[2023-05-07] MEDS: FLUTICASONE 50MCG NASAL SPRAY NAS SCH (07:22)
[2023-05-07] MEDS: MELATONIN 3 MG TABLET PO SCH (19:37)
[2023-05-07] MEDS: ATORVASTATIN 80 MG TAB PO SCH (19:37)
--- NOTE | 2023-05-07 19:38 | PN ---
Date of Progress Note: 05/07/2023 Time Of Service: 12:50 p.m. Subjective: Mr. Dow is in his room. He is happy. He has family visiting. His left upper extr emity strength compared to yesterday slightly improved, ability to mobilize improved, and he is happy about that. Review of Systems: No fevers, chills. No myalgias, arthralgias. No rash. No psychiatric issues except for pseudobulba r type affect. He did become slightly emotional. He had conversations today, but did not cry. Physical Examination: Vital Signs: Blood pressure 178/66, pulse 62, respiratory rate 17, temperature 97.3, O2 saturation 9 8%. General: Mr. Dow is sitting in a chair eating, finished up his lunch. HEENT: He is normocephalic, atraumatic. Sclerae anicteric. Oropharynx pink and moist. Neck: Supple. Chest: Clear. Extremities: No significant clubbing, cyanosis, or edema. Left upper extremity has around [address] proximally and distally. Pincer moves from the left thumb to index, middle, ring, and little finger are adequate, but still weak. Laboratory Studies: No new laboratory studies. X-ray/imaging: No new x-rays or imaging. Medications: His medications have been reviewed and remain unchanged. Progress Made With Physical And Occupational Therapy: Today with physical therapy, he ambulated with a rolling walker 250 feet with modified independence. No loss of balance. Also did another 250 fee t without any assistive devices, had no arm swing, was looking at the floor to ensure steadiness, did complete 20 steps with bilateral handrails independently. [id number]-lmvfa done independently in the lo ss of balance. With occupational therapy, making great progress. Hand grasp, opening and closing, d oing very well with that. With speech therapy, completed oral motor exercises, 15 repetitions, with improved left-sided facial movement with labial and lingual movements improving as well. Overall, Mr. Dow is making excellent progress with his physical, occupational, and speech therap y, recovering from his stroke that affected the left body and right brain. He is doing well. His sp irits are up and likely will be discharged home with family to continue therapy. He is doing well en ough that he may benefit from outpatient therapy more than Home Health. Assessment: Mr. Dow is a 73-year-old patient, who had a right basal ganglia stroke producing le ft upper and lower extremity weakness with dysarthria, dysphagia, and mild aphasia, was doing very we ll. He has dyslipidemia, hypokalemia, tobacco dependency, malnutrition, depression, pseudobulbar aff ect, and he is doing much better. Plan: 1.He will continue with physical, occupational, and speech therapy [facility] 2.Continue all his comorbid condition medications which have been listed previously without change. Comorbidities That Continue To Impact Rehabilitation: Currently listed above are affect symptoms are improving slightly. He is not on medications for it and it may be considered, especially if his sym ptoms worsen, may consider duloxetine as Nuedexta is very expensive. JANAE/CRISTOFER Voice ID: [id number] Report ID: [id number]
[2023-05-08] MEDS: NYSTATIN PWDR 100000 UNIT/GM TOP SCH ×2 (07:54→19:31)
[2023-05-08] MEDS: FOLIC ACID 1 MG TABLET PO SCH (07:55)
[2023-05-08] MEDS: LIDOCAINE 4% PATCH TOP SCH (07:55)
[2023-05-08] MEDS: APIXABAN 2.5 MG TABLET PO SCH ×2 (07:55→19:32)
[2023-05-08] MEDS: NICOTINE 14 MG/PAT TD SCH (07:55)
[2023-05-08] MEDS: AMLODIPINE 5 MG TAB PO SCH ×2 (07:55→19:48)
[2023-05-08] MEDS: FLUTICASONE 50MCG NASAL SPRAY NAS SCH (07:55)
[2023-05-08] MEDS: ASPIRIN 81 MG CHEWABLE TABLET PO SCH (07:55)
[2023-05-08] MEDS: ENSURE ENLIVE 237 ML CAN PO SCH ×2 (08:22→19:33)
[2023-05-08] MEDS: ATORVASTATIN 80 MG TAB PO SCH (19:32)
[2023-05-08] MEDS: ACETAMINOPHEN 500 MG TAB PO PRN (19:32)
[2023-05-08] MEDS: MELATONIN 3 MG TABLET PO SCH (19:32)
[2023-05-09 07:34] VITALS: BP 137/79; TEMP 97.2
[2023-05-09] MEDS: ENSURE ENLIVE 237 ML CAN PO SCH (08:00)
[2023-05-09] MEDS: FLUTICASONE 50MCG NASAL SPRAY NAS SCH (08:26)
[2023-05-09] MEDS: NYSTATIN PWDR 100000 UNIT/GM TOP SCH (08:26)
[2023-05-09] MEDS: NICOTINE 14 MG/PAT TD SCH (08:26)
[2023-05-09] MEDS: LIDOCAINE 4% PATCH TOP SCH (08:26)
[2023-05-09] MEDS: AMLODIPINE 5 MG TAB PO SCH (08:27)
[2023-05-09] MEDS: APIXABAN 2.5 MG TABLET PO SCH (08:27)
[2023-05-09] MEDS: FOLIC ACID 1 MG TABLET PO SCH (08:27)
[2023-05-09] MEDS: ASPIRIN 81 MG CHEWABLE TABLET PO SCH (08:27)
== END 2023-05-09 10:20 | disposition home or self-care (01) | DRG 57 ==
LOC: 5TH 01:00
PROVIDERS: ADMIT Psychiatry & Neurology Neurology with Special Qualifications in Child Neurology; ATTEND Psychiatry & Neurology Neurology with Special Qualifications in Child Neurology
DX: I69.354 Hemiplegia and hemiparesis following cerebral infarction affecting left non-dominant side (principal); E46 Unspecified protein-calorie malnutrition; I69.322 Dysarthria following cerebral infarction; E87.6 Hypokalemia; K59.00 Constipation, unspecified; I10 Essential (primary) hypertension; E78.5 Hyperlipidemia, unspecified; Z68.23 Body mass index [BMI] 23.0-23.9, adult; G47.00 Insomnia, unspecified; F32.A Depression, unspecified; F17.200 Nicotine dependence, unspecified, uncomplicated
CPT/HCPCS: 36415; 80048; 80053; 81001; 82040; 83735; 84134; 85025; 87086; 87088; 87635; 92507; 92526; 92610; 97110; 97112; 97116; 97163; 97165; 97530; 97542; J1650; J2001